=== PATIENT | male | born 1985 | race Caucasian/White ===

== ENCOUNTER 2016-11-21 13:13 | Emergency (ER) | payer MEDICAID ==
[2016-11-21 14:06] LABS: MEAN CORPUSCULAR HEMOGLOBIN 29.9 pg (27.0-33.0); MEAN CORPUSCULAR HGB CONC 34.9 g/dl (32.0-36.5); MEAN CORPUSCULAR VOLUME 85.7 fl (80.0-96.0); RED CELL DISTRIBUTION WIDTH 12.1 % (11.5-14.5); WHITE BLOOD COUNT 6.4 K/mm3 (4.0-10.0)
[2016-11-21 14:38] LABS: AMPHETAMINES LEVEL URINE POSITIVE (NEGATIVE); BENZODIAZEPINES URINE NEGATIVE (NEGATIVE); COCAINE METABOLITE URINE NEGATIVE (NEGATIVE); CONTROL LINE INT CTR LINE PRESENT; METHADONE URINE NEGATIVE (NEGATIVE); OPIATES URINE NEGATIVE (NEGATIVE); TRICYCLIC ANTIDEPRESS URINE NEGATIVE (NEGATIVE)
[2016-11-21 14:45] LABS: ALBUMIN 4.5 GM/DL (3.2-5.2); ALBUMIN/GLOBULIN RATIO 1.67 (1.00-1.93); ALKALINE PHOSPHATASE 65 U/L (45-117); ALT/SGPT 24 U/L (12-78); ANION GAP 6 MEQ/L (8-16); AST/SGOT 25 U/L (15-37); BILIRUBIN,DIRECT 0.2 MG/DL (0.0-0.2); BILIRUBIN,TOTAL 0.7 MG/DL (0.2-1.0); BLOOD UREA NITROGEN 8 MG/DL (7-18); CALCIUM LEVEL 9.8 MG/DL (8.5-10.1); CARBON DIOXIDE LEVEL 29 MEQ/L (21-32); CHLORIDE LEVEL 108 MEQ/L (98-107); CREATININE FOR GFR 0.87 MG/DL (0.70-1.30); GLOMERULAR FILTRATION RATE > 60.0 (>60); GLUCOSE, FASTING 110 MG/DL (70-105); POTASSIUM SERUM 3.7 MEQ/L (3.5-5.1); SODIUM LEVEL 143 MEQ/L (136-145); TOTAL PROTEIN 7.2 GM/DL (6.4-8.2)
--- NOTE | 2016-11-21 16:12 | EDDOCDS ---
Physician Documentation [facility] Name: Warren Palma Age: 31 yrs Sex: Male : 1985 Arrival Date: 11/21/2016 Time: 13:13 Bed 30 Private MD: Disposition: 11/21 15:44 Critical Care: Critical care not applicable. pc Disposition: 11/21/16 15:46 Discharged to Home/Self Care. Impression: Other stimulant abuse - methamphetamine. - Condition is Stable. - Discharge Instructions: Polysubstance Abuse. - Medication Reconciliation, Local Pharmacy Hours form. - Follow up: Referral list, As provided by PFS; When: Call to arrange an appointment; Reason: To establish care. Follow up: CREDO; When: Call to arrange an appointment; Reason: To establish care. - Problem is chronic. - Symptoms are unchanged. HPI: 14:08 This 31 yrs old Male presents to ER via Walkin/Carried/Asstd with complaints pc of Psych Problem. 14:08 The history is obtained from the patient, the patient's family/friend. He is a pc polysubstance abuser, currently on a one week binge of meth, as well as use of Krokodil and Vicodin. His family has brought him here for detox, which he has been told we do not have. He denies SI or HI, and is wanting to leave but his family are convincing to stay. He is agitated but alert and oriented. The patient has experienced similar episodes in the past, several times. The patient has not recently seen a physician. Historical: - Allergies: PENICILLINS (Unknown); - Home Meds: 1. none - PMHx: polysubstance abuse; abnormal EKG; - PSHx: none; - The history from nurses notes was reviewed: and I agree with what is documented. - Social history: Smoking status: Patient uses tobacco products, heavy tobacco smoker. No barriers to communication noted, The patient speaks fluent Danish, Speaks appropriately for age. - : The pt / caregiver states he / she is not on anticoagulants. Home medication list is obtained from the patient. - Hospitalizations: : No recent hospitalization is reported. - Exposure Risk Screening:: None identified. - Immunization history:: All immunizations up-to-date. - Family history: Not pertinent. - Social history:: the patient smokes cigarettes the patient drinks alcohol, the patient uses illicit drugs, including marijuana, opiates. ROS: 14:08 All systems are negative except as listed. The psychiatric and neurological components pc are also addressed in the HPI. Exam: 14:08 General Appearance: alert, anxious. pc 14:08 ENT: ear, nose and throat normal, pharynx normal. 14:08 Eyes: pupils equal, round and reactive to light, extraocular motions intact. 14:08 Neck: The exam reveals no acute abnormalities. ROM is normal and painless. No nuchal rigidity is noted.. 14:08 Respiratory: breathing is even and unlabored, breath sounds are normal. 14:08 Cardiovascular: regular pulse rate, regular heart rhythm, normal heart sounds, equal and full pulses bilaterally. 14:08 Abdomen: soft, non-tender, no organomegaly, normal bowel sounds. 14:08 Skin: skin color is normal, warm, dry. 14:08 Extremities: The extremities have a grossly normal appearance, are non-tender, without acute ROM abnormalities, track rachel noted in arms. 14:08 Neuro: alert, oriented to person, place and time, cranial nerves normal as tested, no motor deficits, no sensory deficits. 14:08 Psych: mood is angry, affect is animated. Vital Signs: 13:16 BP 147 / 66 LA Sitting (auto/reg); Pulse 75; Resp 20; Temp 96.9(O); Pulse Ox 95% on bnb R/A; Weight 61.23 kg / 134.99 lbs (R); Height 5 ft. 10 in. (177.80 cm) (R); 13:16 Body Mass Index 19.37 (61.23 kg, 177.80 cm) bnb MDM: 13:37 Consult PFS/PSA/Communications Systems Engineer ordered. pc 13:37 Confirm accurate psychiatric medication list and times of last dosage ordered. pc 13:38 Acetaminophen Level Ordered. EDMS 13:38 Basic Metabolic Profile Ordered. EDMS 13:38 Complete Blood Count Ordered. EDMS 13:38 Drug Eval Toxicology ED Only Ordered. EDMS 13:38 Ethyl Alcohol (ethanol) Ordered. EDMS 13:38 Liver Profile Ordered. EDMS 13:38 Salicylate Level Ordered. EDMS 13:38 Thyroid Stimulating Hormone Ordered. EDMS 14:08 Differential diagnosis: Substance Abuse. Plan: PFS eval. pc 14:50 Acetaminophen Level Reviewed. pc 14:50 Basic Metabolic Profile Reviewed. pc 14:50 Complete Blood Count Reviewed. pc 14:50 Drug Eval Toxicology ED Only Reviewed. pc 14:50 Salicylate Level Reviewed. pc 14:50 Ethyl Alcohol (ethanol) Reviewed. pc 14:50 Liver Profile Reviewed. pc 14:50 Thyroid Stimulating Hormone Reviewed. pc 15:13 Consult PFS/PSA/Communications Systems Engineer complete. ml4 15:44 The patient has been medically cleared for psychiatric evaluation, admission and/or pc transfer. [employer] Safe Act reporting: Reporting to the [employer] Safe Act was not completed because the patient did not display any suicidal or homicidal ideation and was not considered a risk to self or others. Data reviewed: old medical records, vital signs, nurses notes, lab test results. Test interpretation: LAB - all labs as ordered have been reviewed, interpreted and considered in the overall management of the clinical presentation;. The patient has been re-examined and re-evaluated. There is no appreciated change of the patient's symptoms at this time. Disposition: The historical points, examination findings, and any diagnostic results supporting the provided diagnosis, were discussed with the patient or legal guardian. The need for outpatient follow up with the provider listed on their discharge instructions was discussed. They were encouraged to return to [facility], or the nearest ED, if symptoms worsen/persist, or for any other questions/concerns. 16:08 E Legal paperwork was scanned into [employer] and attached to record. ml4 Signatures: Dispatcher [employer] EDMS Gume Sharp MD MD pc Sleeman, Kacey, RN RN kcs Helmerci, Jennifer, RN RN jo3 Treadwell, Michelle PSA PSA ml4 MTDD
--- NOTE | 2016-11-21 16:12 | EDDOCDS ---
Nurse's Notes [facility] Name: Warren Palma Age: 31 yrs Sex: Male : 1985 Arrival Date: 11/21/2016 Time: 13:13 Bed 30 Private MD: Diagnosis: Other stimulant abuse-methamphetamine Presentation: 11/21 13:30 Presenting complaint: Pt has long history of polysubstance abuse to include meth , jo3 crocodile, and opioids. Here today because he wants mandatory detox. States that he is in withdrawal after consuming 1gram of meth at 0000. Used Vicodin, crocodile and concerta in the past week. Mental Health Triage Level: Level 1- Pt displays no suicidal or homicidal ideations and does not appear to be a danger to self or others. Adult Sepsis Screening: The patient does not have new or worsening altered mentation. Patient's respiratory rate is less than 22. Systolic blood pressure is greater than 100. Patient has a qSOFA score of 0- Negative Sepsis Screen. Suicide/Homicide risk assessment- the patient denies having any suicidal and/or homicidal ideations and does not present with any other emotional, behavioral or mental health complaints. Status: Patient is not a hr shared services consultant or dependent. Transition of care: patient was not received from another setting of care. 13:30 Acuity: OUSMANE Level 4 jo3 13:30 Method Of Arrival: Walkin/Carried/Asstd jo3 Triage Assessment: 13:35 General: Appears slender, uncomfortable, unkempt. HIV screening NA for this visit jo3 Offered previously. Neurological: Level of Consciousness is awake, alert, Oriented to person, place, time. Respiratory: Airway is patent Respiratory effort is even, unlabored. Derm: Skin is pink, warm & dry. Historical: - Allergies: PENICILLINS (Unknown); - Home Meds: 1. none - PMHx: polysubstance abuse; abnormal EKG; - PSHx: none; - The history from nurses notes was reviewed: and I agree with what is documented. - Social history: Smoking status: Patient uses tobacco products, heavy tobacco smoker. No barriers to communication noted, The patient speaks fluent Maltese, Speaks appropriately for age. - : The pt / caregiver states he / she is not on anticoagulants. Home medication list is obtained from the patient. - Hospitalizations: : No recent hospitalization is reported. - Exposure Risk Screening:: None identified. - Immunization history:: All immunizations up-to-date. - Family history: Not pertinent. - Social history:: the patient smokes cigarettes the patient drinks alcohol, the patient uses illicit drugs, including marijuana, opiates. Screenin:50 Screening information is obtained from the patient. Fall risk: No risks identified. kcs Assistance ADL's: requires no assistance with activities of daily living. Abuse/DV Screen: The patient / caregiver reports he/she is: not in a situation that causes fear, pain or injury. Nutritional screening: does not eat for days per family. Advance Directives: Currently, there is no health care proxy. home support is adequate. Assessment: 13:57 Reassessment: Patient handed me his urine specimen and asked when he was going to be kcs going upstairs to be admitted - informed that it would be awhile since we are just sending his labs upstairs now. Patient told his family he wanted to leave and they told him he had to stay and get help. Patient is swearing constantly. Boxed lunch given because the patient stated he had not eaten in 5 days. Patient very restless, agitated and at times confrontational. Family at bedside.. 14:22 Reassessment: Patient more cooperative - talking with family.. kcs 15:10 Reassessment: patient and brother started fighting in room - throwing objects and kcs swearing - mother made brother leave. Patient agitated and restless - provider informed.. 15:28 General: patient being evaluated by FAVIO Vasquez. Family has stepped out.. kcs 15:50 Reassessment: patient left when given PSA referral form and did not wait for ED kcs discharge paperwork. Patient left with family after PSA spoke with mother.. Social Work Consult: 15:55 Social Work Note: Met pt at bedside regarding drug abuse. 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 He admits wanting help, but Mother is requesting pt to attend detox or she will not allow him back into their home. Rehab/Detox information was explained in great detail. Pt denies SI and HI, able to CFS. Referrals were given and directed pt to attend walk-in hrs at [facility]. Pt is discharged with Mother and directed to follow up with [facility] for further tx. Vital Signs: 13:16 BP 147 / 66 LA Sitting (auto/reg); Pulse 75; Resp 20; Temp 96.9(O); Pulse Ox 95% on bnb R/A; Weight 61.23 kg (R); Height 5 ft. 10 in. (177.80 cm) (R); 13:16 Body Mass Index 19.37 (61.23 kg, 177.80 cm) bnb Vitals: 13:16 Log In Time: November 21, 2016 at 13:14. bnb ED Course: 13:14 Patient visited by Valentine Fitzgerald PCA. bnb 13:14 Patient moved to Waiting bnb 13:20 Patient moved to Pre RCE bnb 13:23 Patient moved to 30 jo3 13:26 Gume Sharp MD is Attending Physician. pc 13:34 Triage Initiated jo3 13:35 Patient visited by Julia Menjivar RN. jo3 13:49 Patient visited by Gume Sharp MD. pc 13:56 Acetaminophen Level Sent. kcs 13:56 Basic Metabolic Profile Sent. kcs 14:01 Complete Blood Count Sent. kcs 14:01 Drug Eval Toxicology ED Only Sent. kcs 14:01 Ethyl Alcohol (ethanol) Sent. kcs 14:01 Liver Profile Sent. kcs 14:01 Salicylate Level Sent. kcs 14:01 Thyroid Stimulating Hormone Sent. kcs 14:50 Patient visited by Gume Sharp MD. pc 15:13 Patient visited by Emelina Hoffman PSA. ml4 15:46 Referral list, As provided by PFS is Referral Physician. pc 15:47 [facility]O is Referral Physician. pc 15:50 The patient / caregiver is instructed regarding the plan of care and ED course. kcs 15:50 No IV's were initiated during this patient's visit. No procedures done that require kcs assistance. 16:08 E Legal paperwork was scanned into [facility] and attached to record. ml4 Attachments: 16:08 E Legal paperwork ml4 Order Results: Lab Order: Acetaminophen Level; SPEC'M 11/21/16 13:49 Test: ACETAMINOPHEN LEVEL; Value: < 2.0; Range: 10.0-30.0; Abnormal: Below low normal; Units: UG/ML; Status: F Lab Order: Basic Metabolic Profile; SPEC'M 11/21/16 13:49 Test: GLUCOSE, FASTING; Value: 110; Range: 70-105; Abnormal: Above high normal; Units: MG/DL; Status: F Test: BLOOD UREA NITROGEN; Value: 8; Range: 7-18; Units: MG/DL; Status: F Test: CREATININE FOR GFR; Value: 0.87; Range: 0.70-1.30; Units: MG/DL; Status: F Test: GLOMERULAR FILTRATION RATE; Value: > 60.0; Range: >60; Status: F Test: SODIUM LEVEL; Value: 143; Range: 136-145; Units: MEQ/L; Status: F Test: POTASSIUM SERUM; Value: 3.7; Range: 3.5-5.1; Units: MEQ/L; Status: F Test: CHLORIDE LEVEL; Value: 108; Range: 98-107; Abnormal: Above high normal; Units: MEQ/L; Status: F Test: CARBON DIOXIDE LEVEL; Value: 29; Range: 21-32; Units: MEQ/L; Status: F Test: ANION GAP; Value: 6; Range: 8-16; Abnormal: Below low normal; Units: MEQ/L; Status: F Test: CALCIUM LEVEL; Value: 9.8; Range: 8.5-10.1; Units: MG/DL; Status: F Test Note: ; Units are mL/min/1.73 m2 Chronic Kidney Disease Staging per NKF: Stage I & II GFR >=60 Normal to Mildly Decreased Stage III GFR 30-59 Moderately Decreased Stage IV GFR 15-29 Severely Decreased Stage V GFR <15 Very Little GFR Left ESRD GFR <15 on SPOOLING OPERATOR Lab Order: Complete Blood Count; SPEC'M 11/21/16 13:49 Test: WHITE BLOOD COUNT; Value: 6.4; Range: 4.0-10.0; Units: K/mm3; Status: F Test: RED BLOOD COUNT; Value: 4.48; Range: 4.30-6.10; Units: M/mm3; Status: F Test: HEMOGLOBIN; Value: 13.4; Range: 14.0-18.0; Abnormal: Below low normal; Units: g/dl; Status: F Test: HEMATOCRIT; Value: 38.4; Range: 42.0-52.0; Abnormal: Below low normal; Units: %; Status: F Test: MEAN CORPUSCULAR VOLUME; Value: 85.7; Range: 80.0-96.0; Units: fl; Status: F Test: MEAN CORPUSCULAR HEMOGLOBIN; Value: 29.9; Range: 27.0-33.0; Units: pg; Status: F Test: MEAN CORPUSCULAR HGB CONC; Value: 34.9; Range: 32.0-36.5; Units: g/dl; Status: F Test: RED CELL DISTRIBUTION WIDTH; Value: 12.1; Range: 11.5-14.5; Units: %; Status: F Test: PLATELET COUNT, AUTOMATED; Value: 290; Range: 150-450; Units: k/mm3; Status: F Lab Order: Drug Eval Toxicology ED Only; SPEC'M 11/21/16 13:49 Test: AMPHETAMINES LEVEL URINE; Value: POSITIVE; Range: NEGATIVE; Abnormal: Above high normal; Status: F Test: BARBITURATES URINE; Value: NEGATIVE; Range: NEGATIVE; Status: F Test: BENZODIAZEPINES URINE; Value: NEGATIVE; Range: NEGATIVE; Status: F Test: CANNABINOIDS URINE; Value: POSITIVE; Range: NEGATIVE; Abnormal: Above high normal; Status: F Test: COCAINE METABOLITE URINE; Value: NEGATIVE; Range: NEGATIVE; Status: F Test: METHADONE URINE; Value: NEGATIVE; Range: NEGATIVE; Status: F Test: OPIATES URINE; Value: NEGATIVE; Range: NEGATIVE; Status: F Test: TRICYCLIC ANTIDEPRESS URINE; Value: NEGATIVE; Range: NEGATIVE; Status: F Test Note: ; FALSE POSITIVE RESULTS CAN BE CAUSED BY THE USE OF PANTOPRAZOLE (PROTONIX). Lab Order: Ethyl Alcohol (ethanol); SPEC'M 11/21/16 13:49 Test: ETHYL ALCOHOL (ETHANOL); Value: < 0.003; Range: 0.000-0.010; Units: %; Status: F Lab Order: Liver Profile; SPEC'M 11/21/16 13:49 Test: AST/SGOT; Value: 25; Range: 15-37; Units: U/L; Status: F Test: ALT/SGPT; Value: 24; Range: 12-78; Units: U/L; Status: F Test: ALKALINE PHOSPHATASE; Value: 65; Range: 45-117; Units: U/L; Status: F Test: BILIRUBIN,TOTAL; Value: 0.7; Range: 0.2-1.0; Units: MG/DL; Status: F Test: BILIRUBIN,DIRECT; Value: 0.2; Range: 0.0-0.2; Units: MG/DL; Status: F Test: TOTAL PROTEIN; Value: 7.2; Range: 6.4-8.2; Units: GM/DL; Status: F Test: ALBUMIN; Value: 4.5; Range: 3.2-5.2; Units: GM/DL; Status: F Test: ALBUMIN/GLOBULIN RATIO; Value: 1.67; Range: 1.00-1.93; Status: F Lab Order: Salicylate Level; SPEC'M 11/21/16 13:49 Test: SALICYLATE LEVEL; Value: 3.2; Range: 5.0-30.0; Abnormal: Below low normal; Units: MG/DL; Status: F Lab Order: Thyroid Stimulating Hormone; SPEC'M 11/21/16 13:49 Test: THYROID STIMULATING HORMONE; Value: 1.950; Range: 0.358-3.740; Units: uIU/ML; Status: F Outcome: 15:46 Discharge ordered by Provider. pc 15:50 Discharge Assessment: Patient awake, alert and oriented x 3. No cognitive and/or kcs functional deficits noted. Patient verbalized understanding of disposition instructions. Patient awake and alert. patient administered narcotics - no. The following High Risk Discharge criteria are identified: Yes, patient was evaluated by PSA. Discharged to home ambulatory, with family. Condition: stable. No special radiology studies were completed. Property sent home with patient. 16:11 Patient left the ED. kcs Signatures: Gume Sharp MD MD pc Sleeman, Kacey, RN RN Julia GardnerRN RN Emelina Maldonado, PSA PSA ml4 Valentine Fitzgerald PCA ACCOUNTS RECEIVABLE ACCOUNTANT bnb Corrections: (The following items were deleted from the chart) 13:19 13:16 Temp 96.9F Oral; 61.23 kg Reported; Height 5 ft. 10 in. Reported; BMI: 19.3; bnb bnb 16:08 16:07 The patient / caregiver is instructed regarding the plan of care and ED course. [facility] 16: 16:07 Screening information is obtained from the patient, [facility] 16: 16:07 Fall risk: No risks identified. kcs [facility] 16: 16:07 Assistance ADL's: requires no assistance with activities of daily living. kcs [facility] 16: 16: Abuse/DV Screen: The patient / caregiver reports he/she is: not in a situation kcs that causes fear, pain or injury. [facility] 16: 16:07 Nutritional screening: does not eat for days per family. [facility] 16: 16:07 Advance Directives: Currently, there is no health care proxy. kcs [facility] 16: 16:07 home support is adequate. [facility] MTDD
--- NOTE | 2016-11-23 17:11 | EDDOCDS ---
Physician Documentation [facility] Name: Warren Palma Age: 31 yrs Sex: Male : 1985 Arrival Date: 11/21/2016 Time: 13:13 Bed 30 Private MD: Disposition: 11/21 15:44 Critical Care: Critical care not applicable. pc Disposition: 11/21/16 15:46 Discharged to Home/Self Care. Impression: Other stimulant abuse - methamphetamine. - Condition is Stable. - Discharge Instructions: Polysubstance Abuse. - Medication Reconciliation, Local Pharmacy Hours form. - Follow up: Referral list, As provided by PFS; When: Call to arrange an appointment; Reason: To establish care. Follow up: [facility]; When: Call to arrange an appointment; Reason: To establish care. - Problem is chronic. - Symptoms are unchanged. HPI: 14:08 This 31 yrs old Male presents to ER via Walkin/Carried/Asstd with complaints pc of Psych Problem. 14:08 The history is obtained from the patient, the patient's family/friend. He is a pc polysubstance abuser, currently on a one week binge of meth, as well as use of Krokodil and Vicodin. His family has brought him here for detox, which he has been told we do not have. He denies SI or HI, and is wanting to leave but his family are convincing to stay. He is agitated but alert and oriented. The patient has experienced similar episodes in the past, several times. The patient has not recently seen a physician. Historical: - Allergies: PENICILLINS (Unknown); - Home Meds: 1. none - PMHx: polysubstance abuse; abnormal EKG; - PSHx: none; - The history from nurses notes was reviewed: and I agree with what is documented. - Social history: Smoking status: Patient uses tobacco products, heavy tobacco smoker. No barriers to communication noted, The patient speaks fluent Australian, Speaks appropriately for age. - : The pt / caregiver states he / she is not on anticoagulants. Home medication list is obtained from the patient. - Hospitalizations: : No recent hospitalization is reported. - Exposure Risk Screening:: None identified. - Immunization history:: All immunizations up-to-date. - Family history: Not pertinent. - Social history:: the patient smokes cigarettes the patient drinks alcohol, the patient uses illicit drugs, including marijuana, opiates. ROS: 14:08 All systems are negative except as listed. The psychiatric and neurological components pc are also addressed in the HPI. Exam: 14:08 General Appearance: alert, anxious. pc 14:08 ENT: ear, nose and throat normal, pharynx normal. 14:08 Eyes: pupils equal, round and reactive to light, extraocular motions intact. 14:08 Neck: The exam reveals no acute abnormalities. ROM is normal and painless. No nuchal rigidity is noted.. 14:08 Respiratory: breathing is even and unlabored, breath sounds are normal. 14:08 Cardiovascular: regular pulse rate, regular heart rhythm, normal heart sounds, equal and full pulses bilaterally. 14:08 Abdomen: soft, non-tender, no organomegaly, normal bowel sounds. 14:08 Skin: skin color is normal, warm, dry. 14:08 Extremities: The extremities have a grossly normal appearance, are non-tender, without acute ROM abnormalities, track rachel noted in arms. 14:08 Neuro: alert, oriented to person, place and time, cranial nerves normal as tested, no motor deficits, no sensory deficits. 14:08 Psych: mood is angry, affect is animated. Vital Signs: 13:16 BP 147 / 66 LA Sitting (auto/reg); Pulse 75; Resp 20; Temp 96.9(O); Pulse Ox 95% on bnb R/A; Weight 61.23 kg / 134.99 lbs (R); Height 5 ft. 10 in. (177.80 cm) (R); 13:16 Body Mass Index 19.37 (61.23 kg, 177.80 cm) bnb MDM: 13:37 Consult PFS/PSA/Marketing Rep ordered. pc 13:37 Confirm accurate psychiatric medication list and times of last dosage ordered. pc 13:38 Acetaminophen Level Ordered. EDMS 13:38 Basic Metabolic Profile Ordered. EDMS 13:38 Complete Blood Count Ordered. EDMS 13:38 Drug Eval Toxicology ED Only Ordered. EDMS 13:38 Ethyl Alcohol (ethanol) Ordered. EDMS 13:38 Liver Profile Ordered. EDMS 13:38 Salicylate Level Ordered. EDMS 13:38 Thyroid Stimulating Hormone Ordered. EDMS 14:08 Differential diagnosis: Substance Abuse. Plan: PFS eval. pc 14:50 Acetaminophen Level Reviewed. pc 14:50 Basic Metabolic Profile Reviewed. pc 14:50 Complete Blood Count Reviewed. pc 14:50 Drug Eval Toxicology ED Only Reviewed. pc 14:50 Salicylate Level Reviewed. pc 14:50 Ethyl Alcohol (ethanol) Reviewed. pc 14:50 Liver Profile Reviewed. pc 14:50 Thyroid Stimulating Hormone Reviewed. pc 15:13 Consult PFS/PSA/Marketing Rep complete. ml4 15:44 The patient has been medically cleared for psychiatric evaluation, admission and/or pc transfer. [place] Safe Act reporting: Reporting to the [employer] Safe Act was not completed because the patient did not display any suicidal or homicidal ideation and was not considered a risk to self or others. Data reviewed: old medical records, vital signs, nurses notes, lab test results. Test interpretation: LAB - all labs as ordered have been reviewed, interpreted and considered in the overall management of the clinical presentation;. The patient has been re-examined and re-evaluated. There is no appreciated change of the patient's symptoms at this time. Disposition: The historical points, examination findings, and any diagnostic results supporting the provided diagnosis, were discussed with the patient or legal guardian. The need for outpatient follow up with the provider listed on their discharge instructions was discussed. They were encouraged to return to [facility], or the nearest ED, if symptoms worsen/persist, or for any other questions/concerns. 16:08 [facility] Legal paperwork was scanned into [employer] and attached to record. ml4 16:23 Financial registration complete. [email or web address] 16:25 [facility] Payment Agreement was scanned into [employer] and attached to record. [email or web address] Signatures: Dispatcher [employer] EDMS Gume Sharp MD MD pc Sleeman, Kacey, RN RN kcs Helmerci, Jennifer, RN RN joEmelina Cruz, PSA PSA ml4 Marina Orosco, Reg Reg [email or web address] The chart was reviewed and I authenticate all verbal orders and agree with the evaluation and treatment provided.Attachments: 16:25 [facility] Payment Agreement [email or web address] Chart Complete MTDD
--- NOTE | 2016-11-23 17:11 | EDDOCDS ---
Physician Documentation [facility] Name: Warren Palma Age: 31 yrs Sex: Male : 1985 Arrival Date: 11/21/2016 Time: 13:13 Bed 30 Private MD: Disposition: 11/21 15:44 Critical Care: Critical care not applicable. pc Disposition: 11/21/16 15:46 Discharged to Home/Self Care. Impression: Other stimulant abuse - methamphetamine. - Condition is Stable. - Discharge Instructions: Polysubstance Abuse. - Medication Reconciliation, Local Pharmacy Hours form. - Follow up: Referral list, As provided by PFS; When: Call to arrange an appointment; Reason: To establish care. Follow up: [facility]; When: Call to arrange an appointment; Reason: To establish care. - Problem is chronic. - Symptoms are unchanged. HPI: 14:08 This 31 yrs old Male presents to ER via Walkin/Carried/Asstd with complaints pc of Psych Problem. 14:08 The history is obtained from the patient, the patient's family/friend. He is a pc polysubstance abuser, currently on a one week binge of meth, as well as use of Krokodil and Vicodin. His family has brought him here for detox, which he has been told we do not have. He denies SI or HI, and is wanting to leave but his family are convincing to stay. He is agitated but alert and oriented. The patient has experienced similar episodes in the past, several times. The patient has not recently seen a physician. Historical: - Allergies: PENICILLINS (Unknown); - Home Meds: 1. none - PMHx: polysubstance abuse; abnormal EKG; - PSHx: none; - The history from nurses notes was reviewed: and I agree with what is documented. - Social history: Smoking status: Patient uses tobacco products, heavy tobacco smoker. No barriers to communication noted, The patient speaks fluent Taiwanese, Speaks appropriately for age. - : The pt / caregiver states he / she is not on anticoagulants. Home medication list is obtained from the patient. - Hospitalizations: : No recent hospitalization is reported. - Exposure Risk Screening:: None identified. - Immunization history:: All immunizations up-to-date. - Family history: Not pertinent. - Social history:: the patient smokes cigarettes the patient drinks alcohol, the patient uses illicit drugs, including marijuana, opiates. ROS: 14:08 All systems are negative except as listed. The psychiatric and neurological components pc are also addressed in the HPI. Exam: 14:08 General Appearance: alert, anxious. pc 14:08 ENT: ear, nose and throat normal, pharynx normal. 14:08 Eyes: pupils equal, round and reactive to light, extraocular motions intact. 14:08 Neck: The exam reveals no acute abnormalities. ROM is normal and painless. No nuchal rigidity is noted.. 14:08 Respiratory: breathing is even and unlabored, breath sounds are normal. 14:08 Cardiovascular: regular pulse rate, regular heart rhythm, normal heart sounds, equal and full pulses bilaterally. 14:08 Abdomen: soft, non-tender, no organomegaly, normal bowel sounds. 14:08 Skin: skin color is normal, warm, dry. 14:08 Extremities: The extremities have a grossly normal appearance, are non-tender, without acute ROM abnormalities, track rachel noted in arms. 14:08 Neuro: alert, oriented to person, place and time, cranial nerves normal as tested, no motor deficits, no sensory deficits. 14:08 Psych: mood is angry, affect is animated. Vital Signs: 13:16 BP 147 / 66 LA Sitting (auto/reg); Pulse 75; Resp 20; Temp 96.9(O); Pulse Ox 95% on bnb R/A; Weight 61.23 kg / 134.99 lbs (R); Height 5 ft. 10 in. (177.80 cm) (R); 13:16 Body Mass Index 19.37 (61.23 kg, 177.80 cm) bnb MDM: 13:37 Consult PFS/PSA/Business Analysis Specialist ordered. pc 13:37 Confirm accurate psychiatric medication list and times of last dosage ordered. pc 13:38 Acetaminophen Level Ordered. EDMS 13:38 Basic Metabolic Profile Ordered. EDMS 13:38 Complete Blood Count Ordered. EDMS 13:38 Drug Eval Toxicology ED Only Ordered. EDMS 13:38 Ethyl Alcohol (ethanol) Ordered. EDMS 13:38 Liver Profile Ordered. EDMS 13:38 Salicylate Level Ordered. EDMS 13:38 Thyroid Stimulating Hormone Ordered. EDMS 14:08 Differential diagnosis: Substance Abuse. Plan: PFS eval. pc 14:50 Acetaminophen Level Reviewed. pc 14:50 Basic Metabolic Profile Reviewed. pc 14:50 Complete Blood Count Reviewed. pc 14:50 Drug Eval Toxicology ED Only Reviewed. pc 14:50 Salicylate Level Reviewed. pc 14:50 Ethyl Alcohol (ethanol) Reviewed. pc 14:50 Liver Profile Reviewed. pc 14:50 Thyroid Stimulating Hormone Reviewed. pc 15:13 Consult PFS/PSA/Business Analysis Specialist complete. ml4 15:44 The patient has been medically cleared for psychiatric evaluation, admission and/or pc transfer. [place] Safe Act reporting: Reporting to the [employer] Safe Act was not completed because the patient did not display any suicidal or homicidal ideation and was not considered a risk to self or others. Data reviewed: old medical records, vital signs, nurses notes, lab test results. Test interpretation: LAB - all labs as ordered have been reviewed, interpreted and considered in the overall management of the clinical presentation;. The patient has been re-examined and re-evaluated. There is no appreciated change of the patient's symptoms at this time. Disposition: The historical points, examination findings, and any diagnostic results supporting the provided diagnosis, were discussed with the patient or legal guardian. The need for outpatient follow up with the provider listed on their discharge instructions was discussed. They were encouraged to return to [facility], or the nearest ED, if symptoms worsen/persist, or for any other questions/concerns. 16:08 [facility] Legal paperwork was scanned into [employer] and attached to record. ml4 16:23 Financial registration complete. [email or web address] 16:25 [facility] Payment Agreement was scanned into [employer] and attached to record. [email or web address] Signatures: Dispatcher [employer] EDMS Gume Sharp MD MD pc Sleeman, Kacey, RN RN kcs Helmerci, Jennifer, RN RN joEmelina Cruz, PSA PSA ml4 Marina Orosco, Reg Reg ks16 The chart was reviewed and I authenticate all verbal orders and agree with the evaluation and treatment provided.Attachments: 16:25 [facility] Payment Agreement [email or web address] Chart Complete MTDD
--- NOTE | 2016-11-23 17:11 | EDDOCDS ---
Nurse's Notes [facility] Name: Warren Palma Age: 31 yrs Sex: Male : 1985 Arrival Date: 11/21/2016 Time: 13:13 Bed 30 Private MD: Diagnosis: Other stimulant abuse-methamphetamine Presentation: 11/21 13:30 Presenting complaint: Pt has long history of polysubstance abuse to include meth , jo3 crocodile, and opioids. Here today because he wants mandatory detox. States that he is in withdrawal after consuming 1gram of meth at 0000. Used Vicodin, crocodile and concerta in the past week. Mental Health Triage Level: Level 1- Pt displays no suicidal or homicidal ideations and does not appear to be a danger to self or others. Adult Sepsis Screening: The patient does not have new or worsening altered mentation. Patient's respiratory rate is less than 22. Systolic blood pressure is greater than 100. Patient has a qSOFA score of 0- Negative Sepsis Screen. Suicide/Homicide risk assessment- the patient denies having any suicidal and/or homicidal ideations and does not present with any other emotional, behavioral or mental health complaints. Status: Patient is not a customer service officer or dependent. Transition of care: patient was not received from another setting of care. 13:30 Acuity: OUSMANE Level 4 jo3 13:30 Method Of Arrival: Walkin/Carried/Asstd jo3 Triage Assessment: 13:35 General: Appears slender, uncomfortable, unkempt. HIV screening NA for this visit jo3 Offered previously. Neurological: Level of Consciousness is awake, alert, Oriented to person, place, time. Respiratory: Airway is patent Respiratory effort is even, unlabored. Derm: Skin is pink, warm & dry. Historical: - Allergies: PENICILLINS (Unknown); - Home Meds: 1. none - PMHx: polysubstance abuse; abnormal EKG; - PSHx: none; - The history from nurses notes was reviewed: and I agree with what is documented. - Social history: Smoking status: Patient uses tobacco products, heavy tobacco smoker. No barriers to communication noted, The patient speaks fluent Romansh, Speaks appropriately for age. - : The pt / caregiver states he / she is not on anticoagulants. Home medication list is obtained from the patient. - Hospitalizations: : No recent hospitalization is reported. - Exposure Risk Screening:: None identified. - Immunization history:: All immunizations up-to-date. - Family history: Not pertinent. - Social history:: the patient smokes cigarettes the patient drinks alcohol, the patient uses illicit drugs, including marijuana, opiates. Screenin:50 Screening information is obtained from the patient. Fall risk: No risks identified. kcs Assistance ADL's: requires no assistance with activities of daily living. Abuse/DV Screen: The patient / caregiver reports he/she is: not in a situation that causes fear, pain or injury. Nutritional screening: does not eat for days per family. Advance Directives: Currently, there is no health care proxy. home support is adequate. Assessment: 13:57 Reassessment: Patient handed me his urine specimen and asked when he was going to be kcs going upstairs to be admitted - informed that it would be awhile since we are just sending his labs upstairs now. Patient told his family he wanted to leave and they told him he had to stay and get help. Patient is swearing constantly. Boxed lunch given because the patient stated he had not eaten in 5 days. Patient very restless, agitated and at times confrontational. Family at bedside.. 14:22 Reassessment: Patient more cooperative - talking with family.. kcs 15:10 Reassessment: patient and brother started fighting in room - throwing objects and kcs swearing - mother made brother leave. Patient agitated and restless - provider informed.. 15:28 General: patient being evaluated by FAVIO Vasquez. Family has stepped out.. kcs 15:50 Reassessment: patient left when given PSA referral form and did not wait for ED kcs discharge paperwork. Patient left with family after PSA spoke with mother.. Social Work Consult: 15:55 Social Work Note: Met pt at bedside regarding drug abuse. 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 He admits wanting help, but Mother is requesting pt to attend detox or she will not allow him back into their home. Rehab/Detox information was explained in great detail. Pt denies SI and HI, able to CFS. Referrals were given and directed pt to attend walk-in hrs at [facility]. Pt is discharged with Mother and directed to follow up with [facility] for further tx. Vital Signs: 13:16 BP 147 / 66 LA Sitting (auto/reg); Pulse 75; Resp 20; Temp 96.9(O); Pulse Ox 95% on bnb R/A; Weight 61.23 kg (R); Height 5 ft. 10 in. (177.80 cm) (R); 13:16 Body Mass Index 19.37 (61.23 kg, 177.80 cm) bnb Vitals: 13:16 Log In Time: November 21, 2016 at 13:14. bnb ED Course: 13:14 Patient visited by Valentine Fitzgerald PCA. bnb 13:14 Patient moved to Waiting bnb 13:20 Patient moved to Pre RCE bnb 13:23 Patient moved to 30 jo3 13:26 Gume Sharp MD is Attending Physician. pc 13:34 Triage Initiated jo3 13:35 Patient visited by Julia Menjivar RN. jo3 13:49 Patient visited by Gume Sharp MD. pc 13:56 Acetaminophen Level Sent. kcs 13:56 Basic Metabolic Profile Sent. kcs 14:01 Complete Blood Count Sent. kcs 14:01 Drug Eval Toxicology ED Only Sent. kcs 14:01 Ethyl Alcohol (ethanol) Sent. kcs 14:01 Liver Profile Sent. kcs 14:01 Salicylate Level Sent. kcs 14:01 Thyroid Stimulating Hormone Sent. kcs 14:50 Patient visited by Gume Sharp MD. pc 15:13 Patient visited by Emelina Hoffman PSA. ml4 15:46 Referral list, As provided by PFS is Referral Physician. pc 15:47 [facility] is Referral Physician. pc 15:50 The patient / caregiver is instructed regarding the plan of care and ED course. kcs 15:50 No IV's were initiated during this patient's visit. No procedures done that require kcs assistance. 16:08 [facility] Legal paperwork was scanned into [employer] and attached to record. ml4 16:25 [facility] Payment Agreement was scanned into [employer] and attached to record. [email or web address] Attachments: 16:08 [facility] Legal paperwork ml4 Order Results: Lab Order: Acetaminophen Level; SPEC'M 11/21/16 13:49 Test: ACETAMINOPHEN LEVEL; Value: < 2.0; Range: 10.0-30.0; Abnormal: Below low normal; Units: UG/ML; Status: F Lab Order: Basic Metabolic Profile; SPEC11/21/16 13:49 Test: GLUCOSE, FASTING; Value: 110; Range: 70-105; Abnormal: Above high normal; Units: MG/DL; Status: F Test: BLOOD UREA NITROGEN; Value: 8; Range: 7-18; Units: MG/DL; Status: F Test: CREATININE FOR GFR; Value: 0.87; Range: 0.70-1.30; Units: MG/DL; Status: F Test: GLOMERULAR FILTRATION RATE; Value: > 60.0; Range: >60; Status: F Test: SODIUM LEVEL; Value: 143; Range: 136-145; Units: MEQ/L; Status: F Test: POTASSIUM SERUM; Value: 3.7; Range: 3.5-5.1; Units: MEQ/L; Status: F Test: CHLORIDE LEVEL; Value: 108; Range: 98-107; Abnormal: Above high normal; Units: MEQ/L; Status: F Test: CARBON DIOXIDE LEVEL; Value: 29; Range: 21-32; Units: MEQ/L; Status: F Test: ANION GAP; Value: 6; Range: 8-16; Abnormal: Below low normal; Units: MEQ/L; Status: F Test: CALCIUM LEVEL; Value: 9.8; Range: 8.5-10.1; Units: MG/DL; Status: F Test Note: ; Units are mL/min/1.73 m2 Chronic Kidney Disease Staging per NKF: Stage I & II GFR >=60 Normal to Mildly Decreased Stage III GFR 30-59 Moderately Decreased Stage IV GFR 15-29 Severely Decreased Stage V GFR <15 Very Little GFR Left ESRD GFR <15 on ATTENDANCE SECRETARY Lab Order: Complete Blood Count; SPEC11/21/16 13:49 Test: WHITE BLOOD COUNT; Value: 6.4; Range: 4.0-10.0; Units: K/mm3; Status: F Test: RED BLOOD COUNT; Value: 4.48; Range: 4.30-6.10; Units: M/mm3; Status: F Test: HEMOGLOBIN; Value: 13.4; Range: 14.0-18.0; Abnormal: Below low normal; Units: g/dl; Status: F Test: HEMATOCRIT; Value: 38.4; Range: 42.0-52.0; Abnormal: Below low normal; Units: %; Status: F Test: MEAN CORPUSCULAR VOLUME; Value: 85.7; Range: 80.0-96.0; Units: fl; Status: F Test: MEAN CORPUSCULAR HEMOGLOBIN; Value: 29.9; Range: 27.0-33.0; Units: pg; Status: F Test: MEAN CORPUSCULAR HGB CONC; Value: 34.9; Range: 32.0-36.5; Units: g/dl; Status: F Test: RED CELL DISTRIBUTION WIDTH; Value: 12.1; Range: 11.5-14.5; Units: %; Status: F Test: PLATELET COUNT, AUTOMATED; Value: 290; Range: 150-450; Units: k/mm3; Status: F Lab Order: Drug Eval Toxicology ED Only; SPEC'M 11/21/16 13:49 Test: AMPHETAMINES LEVEL URINE; Value: POSITIVE; Range: NEGATIVE; Abnormal: Above high normal; Status: F Test: BARBITURATES URINE; Value: NEGATIVE; Range: NEGATIVE; Status: F Test: BENZODIAZEPINES URINE; Value: NEGATIVE; Range: NEGATIVE; Status: F Test: CANNABINOIDS URINE; Value: POSITIVE; Range: NEGATIVE; Abnormal: Above high normal; Status: F Test: COCAINE METABOLITE URINE; Value: NEGATIVE; Range: NEGATIVE; Status: F Test: METHADONE URINE; Value: NEGATIVE; Range: NEGATIVE; Status: F Test: OPIATES URINE; Value: NEGATIVE; Range: NEGATIVE; Status: F Test: TRICYCLIC ANTIDEPRESS URINE; Value: NEGATIVE; Range: NEGATIVE; Status: F Test Note: ; FALSE POSITIVE RESULTS CAN BE CAUSED BY THE USE OF PANTOPRAZOLE (PROTONIX). Lab Order: Ethyl Alcohol (ethanol); SPEC'M 11/21/16 13:49 Test: ETHYL ALCOHOL (ETHANOL); Value: < 0.003; Range: 0.000-0.010; Units: %; Status: F Lab Order: Liver Profile; SPEC'M 11/21/16 13:49 Test: AST/SGOT; Value: 25; Range: 15-37; Units: U/L; Status: F Test: ALT/SGPT; Value: 24; Range: 12-78; Units: U/L; Status: F Test: ALKALINE PHOSPHATASE; Value: 65; Range: 45-117; Units: U/L; Status: F Test: BILIRUBIN,TOTAL; Value: 0.7; Range: 0.2-1.0; Units: MG/DL; Status: F Test: BILIRUBIN,DIRECT; Value: 0.2; Range: 0.0-0.2; Units: MG/DL; Status: F Test: TOTAL PROTEIN; Value: 7.2; Range: 6.4-8.2; Units: GM/DL; Status: F Test: ALBUMIN; Value: 4.5; Range: 3.2-5.2; Units: GM/DL; Status: F Test: ALBUMIN/GLOBULIN RATIO; Value: 1.67; Range: 1.00-1.93; Status: F Lab Order: Salicylate Level; SPEC'M 11/21/16 13:49 Test: SALICYLATE LEVEL; Value: 3.2; Range: 5.0-30.0; Abnormal: Below low normal; Units: MG/DL; Status: F Lab Order: Thyroid Stimulating Hormone; SPEC'M 11/21/16 13:49 Test: THYROID STIMULATING HORMONE; Value: 1.950; Range: 0.358-3.740; Units: uIU/ML; Status: F Outcome: 15:46 Discharge ordered by Provider. pc 15:50 Discharge Assessment: Patient awake, alert and oriented x 3. No cognitive and/or kcs functional deficits noted. Patient verbalized understanding of disposition instructions. Patient awake and alert. patient administered narcotics - no. The following High Risk Discharge criteria are identified: Yes, patient was evaluated by PSA. Discharged to home ambulatory, with family. Condition: stable. No special radiology studies were completed. Property sent home with patient. 16:11 Patient left the ED. kcs Signatures: Gume Sharp MD MD pc Sleeman, Kacey RN RN Julia Gardner RN RN jo3 Treadwell, Michelle, PSA PSA ml4 Marina Orosco, Reg Reg ks16 Valentine Fitzgerald, CHIEF DEPUTY CORONER CHIEF DEPUTY CORONER bnb Corrections: (The following items were deleted from the chart) 13:19 13:16 Temp 96.9F Oral; 61.23 kg Reported; Height 5 ft. 10 in. Reported; BMI: 19.3; bnb bnb : 16:07 The patient / caregiver is instructed regarding the plan of care and ED course. kcs [facility] 16: Screening information is obtained from the patient, kcs [facility] 16: Fall risk: No risks identified. kcs [facility] 16: Assistance ADL's: requires no assistance with activities of daily living. kcs [facility] 16: Abuse/DV Screen: The patient / caregiver reports he/she is: not in a situation kcs that causes fear, pain or injury. [facility] 16: Nutritional screening: does not eat for days per family. kcs [facility] 16: Advance Directives: Currently, there is no health care proxy. kcs [facility] 16: home support is adequate. kcs kcs Chart Complete MTDD
== END 2016-11-21 16:11 | disposition home or self-care (01) ==
LOC: M ED 13:13
DX: F15.10 Other stimulant abuse, uncomplicated (principal); R94.31 Abnormal electrocardiogram [ECG] [EKG]; F17.210 Nicotine dependence, cigarettes, uncomplicated; Z88.0 Allergy status to penicillin
CPT/HCPCS: 36415; 80048; 80076; 80306; 84443; 85027; 99282; G0480

== ENCOUNTER → 2016-12-06 | Outpatient (CLI) | payer OTHER | LOC: M OUTALCOH 12:54 | PROVIDERS: ATTEND Psychiatry & Neurology Psychiatry | DX: Z13.9 Encounter for screening, unspecified (principal); F15.20 Other stimulant dependence, uncomplicated ==

== ENCOUNTER 2017-01-02 10:30 | Outpatient (RCR) | payer OTHER | END 2017-01-03 | LOC: M OUTALCOH 10:30 | PROVIDERS: ATTEND Psychiatry & Neurology Psychiatry | DX: F15.20 Other stimulant dependence, uncomplicated (principal); F11.10 Opioid abuse, uncomplicated ==

== ENCOUNTER → 2018-07-23 | Outpatient (CLI) | payer MEDICAID, OTHER | LOC: M OUTALCOH 13:02 | DX: F15.20 Other stimulant dependence, uncomplicated (principal); F11.20 Opioid dependence, uncomplicated ==

== ENCOUNTER 2018-07-31 14:41 | Outpatient (RCR) | payer MEDICAID, OTHER | END 2018-08-05 | LOC: M OUTALCOH 14:41 | DX: F15.20 Other stimulant dependence, uncomplicated (principal); F11.20 Opioid dependence, uncomplicated ==

== ENCOUNTER 2018-09-01 16:00 | Outpatient (RCR) | payer OTHER | END 2018-09-04 | LOC: M OUTALCOH 16:00 | PROVIDERS: ATTEND Psychiatry & Neurology Psychiatry | DX: F15.20 Other stimulant dependence, uncomplicated (principal); F11.20 Opioid dependence, uncomplicated ==

== ENCOUNTER 2018-09-22 16:00 | Outpatient (RCR) | payer MEDICAID, OTHER | END 2018-10-05 | LOC: M OUTALCOH 16:00 | PROVIDERS: ATTEND Psychiatry & Neurology Psychiatry | DX: F15.20 Other stimulant dependence, uncomplicated (principal); F11.20 Opioid dependence, uncomplicated ==

== ENCOUNTER → 2018-11-05 | Outpatient (RCR) | payer OTHER | LOC: M OUTALCOH 10-13 08:42 | PROVIDERS: ATTEND Psychiatry & Neurology Psychiatry | DX: F15.20 Other stimulant dependence, uncomplicated (principal); F11.20 Opioid dependence, uncomplicated ==

== ENCOUNTER → 2018-12-03 | Outpatient (RCR) | payer OTHER | LOC: M OUTALCOH 11-06 15:52 | PROVIDERS: ATTEND Psychiatry & Neurology Psychiatry | DX: F15.20 Other stimulant dependence, uncomplicated (principal); F11.20 Opioid dependence, uncomplicated ==

== ENCOUNTER 2019-01-01 08:45 | Outpatient (RCR) | payer OTHER | END 2019-01-03 | LOC: M OUTALCOH 08:45 | PROVIDERS: ATTEND Psychiatry & Neurology Psychiatry | DX: F15.20 Other stimulant dependence, uncomplicated (principal); F11.20 Opioid dependence, uncomplicated ==

== ENCOUNTER 2019-02-01 14:00 | Outpatient (RCR) | payer OTHER | END 2019-02-02 | LOC: M OUTALCOH 14:00 | PROVIDERS: ATTEND Psychiatry & Neurology Psychiatry | DX: F15.20 Other stimulant dependence, uncomplicated (principal); F11.20 Opioid dependence, uncomplicated; F10.10 Alcohol abuse, uncomplicated ==

== ENCOUNTER → 2019-03-12 | Outpatient (CLI) | payer OTHER | LOC: M OUTALCOH 08:17 | PROVIDERS: ATTEND Psychiatry & Neurology Psychiatry | DX: F15.20 Other stimulant dependence, uncomplicated (principal); F11.20 Opioid dependence, uncomplicated ==

== ENCOUNTER 2019-04-02 08:45 | Outpatient (RCR) | payer OTHER | END 2019-04-04 | LOC: M OUTALCOH 08:45 | PROVIDERS: ATTEND Psychiatry & Neurology Psychiatry | DX: F15.20 Other stimulant dependence, uncomplicated (principal); F11.20 Opioid dependence, uncomplicated; F17.200 Nicotine dependence, unspecified, uncomplicated ==

== ENCOUNTER → 2019-05-05 | Outpatient (RCR) | payer OTHER | LOC: M OUTALCOH 04-05 10:00 | PROVIDERS: ATTEND Psychiatry & Neurology Psychiatry | DX: F11.20 Opioid dependence, uncomplicated (principal); F15.20 Other stimulant dependence, uncomplicated; F17.200 Nicotine dependence, unspecified, uncomplicated ==

== ENCOUNTER 2019-06-04 13:00 | Outpatient (RCR) | payer OTHER | END 2019-06-05 | LOC: M OUTALCOH 13:00 | PROVIDERS: ATTEND Psychiatry & Neurology Psychiatry | DX: F15.20 Other stimulant dependence, uncomplicated (principal); F11.20 Opioid dependence, uncomplicated; F17.200 Nicotine dependence, unspecified, uncomplicated ==

== ENCOUNTER 2019-07-02 13:00 | Outpatient (RCR) | payer OTHER | END 2019-07-05 | LOC: M OUTALCOH 13:00 | PROVIDERS: ATTEND Psychiatry & Neurology Psychiatry | DX: F15.20 Other stimulant dependence, uncomplicated (principal); F11.20 Opioid dependence, uncomplicated; F17.200 Nicotine dependence, unspecified, uncomplicated ==

== ENCOUNTER 2019-07-20 15:58 | Outpatient (RCR) | payer OTHER | END 2019-08-05 | LOC: M OUTALCOH 15:58 | PROVIDERS: ATTEND Psychiatry & Neurology Psychiatry | DX: F15.20 Other stimulant dependence, uncomplicated (principal); F11.20 Opioid dependence, uncomplicated; F17.200 Nicotine dependence, unspecified, uncomplicated ==

== ENCOUNTER → 2019-10-12 | Outpatient (CLI) | payer OTHER | LOC: M OUTALCOH 09:18 | PROVIDERS: ATTEND Psychiatry & Neurology Psychiatry | DX: F11.20 Opioid dependence, uncomplicated (principal); F12.10 Cannabis abuse, uncomplicated ==

== ENCOUNTER → 2019-10-25 | Outpatient (CLI) | payer OTHER | LOC: M LAB 19:33 | PROVIDERS: ATTEND Psychiatry & Neurology Addiction Medicine | DX: F11.90 Opioid use, unspecified, uncomplicated (principal) ==

== ENCOUNTER → 2019-11-05 | Outpatient (RCR) | payer OTHER | LOC: M OUTALCOH 10-25 15:56 | PROVIDERS: ATTEND Psychiatry & Neurology Psychiatry | DX: F15.20 Other stimulant dependence, uncomplicated (principal); F11.20 Opioid dependence, uncomplicated; F17.200 Nicotine dependence, unspecified, uncomplicated ==

== ENCOUNTER 2019-12-01 08:45 | Outpatient (RCR) | payer OTHER | END 2019-12-04 | LOC: M OUTALCOH 08:45 | PROVIDERS: ATTEND Psychiatry & Neurology Addiction Medicine | DX: F15.20 Other stimulant dependence, uncomplicated (principal); F11.20 Opioid dependence, uncomplicated; F17.200 Nicotine dependence, unspecified, uncomplicated ==

== ENCOUNTER → 2019-12-15 | Outpatient (REF) | payer OTHER ==
[2019-12-15 18:49] LABS: INFLUENZA A AMPLIFICATION POSITIVE (NEGATIVE); INFLUENZA B AMPLIFICATION NEGATIVE (NEGATIVE)
== END ==
LOC: M LAB REF 17:49
PROVIDERS: ATTEND Physician Assistant
DX: J11.1 Influenza due to unidentified influenza virus with other respiratory manifestations (principal)

== ENCOUNTER 2020-01-03 10:30 | Outpatient (RCR) | payer OTHER | END 2020-01-04 | LOC: M OUTALCOH 10:30 | PROVIDERS: ATTEND Psychiatry & Neurology Addiction Medicine | DX: F11.20 Opioid dependence, uncomplicated (principal); F15.20 Other stimulant dependence, uncomplicated; F17.200 Nicotine dependence, unspecified, uncomplicated ==

== ENCOUNTER 2020-01-31 11:00 | Outpatient (RCR) | payer OTHER | END 2020-02-03 | LOC: M OUTALCOH 11:00 | PROVIDERS: ATTEND Psychiatry & Neurology Addiction Medicine | DX: F15.20 Other stimulant dependence, uncomplicated (principal); F11.20 Opioid dependence, uncomplicated; F12.10 Cannabis abuse, uncomplicated; F17.200 Nicotine dependence, unspecified, uncomplicated ==

== ENCOUNTER 2020-02-29 13:37 | Outpatient (RCR) | payer OTHER | END 2020-03-05 | LOC: M OUTALCOH 13:37 | PROVIDERS: ATTEND Psychiatry & Neurology Addiction Medicine | DX: F15.20 Other stimulant dependence, uncomplicated (principal); F11.20 Opioid dependence, uncomplicated; F12.10 Cannabis abuse, uncomplicated; F17.200 Nicotine dependence, unspecified, uncomplicated ==

== ENCOUNTER → 2020-04-04 | Outpatient (RCR) | payer OTHER | LOC: M OUTALCOH 03-08 16:00 | PROVIDERS: ATTEND Psychiatry & Neurology Addiction Medicine | DX: F15.20 Other stimulant dependence, uncomplicated (principal); F11.20 Opioid dependence, uncomplicated; F12.10 Cannabis abuse, uncomplicated; F17.200 Nicotine dependence, unspecified, uncomplicated ==

== ENCOUNTER 2020-05-01 16:00 | Outpatient (RCR) | payer OTHER | END 2020-05-05 | LOC: M OUTALCOH 16:00 | PROVIDERS: ATTEND Psychiatry & Neurology Addiction Medicine | DX: F15.20 Other stimulant dependence, uncomplicated (principal); F11.20 Opioid dependence, uncomplicated; F12.10 Cannabis abuse, uncomplicated; F17.200 Nicotine dependence, unspecified, uncomplicated ==

== ENCOUNTER 2020-06-01 09:00 | Outpatient (RCR) | payer OTHER | END 2020-06-05 | LOC: M OUTALCOH 09:00 | PROVIDERS: ATTEND Psychiatry & Neurology Addiction Medicine | DX: F15.20 Other stimulant dependence, uncomplicated (principal); F11.20 Opioid dependence, uncomplicated; F12.10 Cannabis abuse, uncomplicated; F17.200 Nicotine dependence, unspecified, uncomplicated ==

== ENCOUNTER → 2020-07-05 | Outpatient (RCR) | payer OTHER | LOC: M OUTALCOH 06-06 13:39 | PROVIDERS: ATTEND Psychiatry & Neurology Addiction Medicine | DX: F15.20 Other stimulant dependence, uncomplicated (principal); F11.20 Opioid dependence, uncomplicated; F12.10 Cannabis abuse, uncomplicated; F17.200 Nicotine dependence, unspecified, uncomplicated ==

== ENCOUNTER 2020-08-04 08:45 | Outpatient (RCR) | payer OTHER | END 2020-08-05 | LOC: M OUTALCOH 08:45 | PROVIDERS: ATTEND Psychiatry & Neurology Addiction Medicine | DX: F15.20 Other stimulant dependence, uncomplicated (principal); F11.20 Opioid dependence, uncomplicated; F12.10 Cannabis abuse, uncomplicated; F17.200 Nicotine dependence, unspecified, uncomplicated ==

== ENCOUNTER 2020-08-30 08:45 | Outpatient (RCR) | payer OTHER | END 2020-09-04 | LOC: M OUTALCOH 08:45 | PROVIDERS: ATTEND Psychiatry & Neurology Addiction Medicine | DX: F15.20 Other stimulant dependence, uncomplicated (principal); F11.20 Opioid dependence, uncomplicated; F12.10 Cannabis abuse, uncomplicated; F17.200 Nicotine dependence, unspecified, uncomplicated ==

== ENCOUNTER 2020-09-06 08:45 | Outpatient (RCR) | payer OTHER | END 2020-10-05 | LOC: M OUTALCOH 08:45 | PROVIDERS: ATTEND Psychiatry & Neurology Addiction Medicine | DX: F15.20 Other stimulant dependence, uncomplicated (principal); F11.20 Opioid dependence, uncomplicated; F12.10 Cannabis abuse, uncomplicated; F17.200 Nicotine dependence, unspecified, uncomplicated ==

== ENCOUNTER → 2020-10-16 | Outpatient (CLI) | payer OTHER | LOC: M OUTALCOH 10:07 | PROVIDERS: ATTEND Psychiatry & Neurology Addiction Medicine | DX: F11.20 Opioid dependence, uncomplicated (principal); F10.10 Alcohol abuse, uncomplicated; F15.10 Other stimulant abuse, uncomplicated ==

== ENCOUNTER 2020-11-01 11:21 | Outpatient (RCR) | payer OTHER | END 2020-11-05 | LOC: M OUTALCOH 11:21 | PROVIDERS: ATTEND Psychiatry & Neurology Addiction Medicine | DX: F15.20 Other stimulant dependence, uncomplicated (principal); F11.20 Opioid dependence, uncomplicated; F12.10 Cannabis abuse, uncomplicated; F17.200 Nicotine dependence, unspecified, uncomplicated ==

== ENCOUNTER 2020-11-29 14:41 | Outpatient (RCR) | payer OTHER | END 2020-12-03 | LOC: M OUTALCOH 14:41 | PROVIDERS: ATTEND Psychiatry & Neurology Psychiatry | DX: F15.20 Other stimulant dependence, uncomplicated (principal); F11.20 Opioid dependence, uncomplicated; F12.10 Cannabis abuse, uncomplicated; F17.200 Nicotine dependence, unspecified, uncomplicated ==

== ENCOUNTER → 2021-01-03 | Outpatient (RCR) | payer OTHER | LOC: M OUTALCOH 12-04 11:30 | PROVIDERS: ATTEND Psychiatry & Neurology Psychiatry | DX: F15.20 Other stimulant dependence, uncomplicated (principal); F11.20 Opioid dependence, uncomplicated; F12.10 Cannabis abuse, uncomplicated; F17.200 Nicotine dependence, unspecified, uncomplicated ==

== ENCOUNTER → 2021-02-02 | Outpatient (RCR) | payer OTHER | LOC: M OUTALCOH 01-05 15:00 | PROVIDERS: ATTEND Psychiatry & Neurology Psychiatry | DX: F15.20 Other stimulant dependence, uncomplicated (principal); F11.20 Opioid dependence, uncomplicated; F12.10 Cannabis abuse, uncomplicated; F17.200 Nicotine dependence, unspecified, uncomplicated ==

== ENCOUNTER 2021-03-02 13:25 | Outpatient (RCR) | payer OTHER | END 2021-03-05 | LOC: M OUTALCOH 13:25 | PROVIDERS: ATTEND Psychiatry & Neurology Psychiatry | DX: F15.20 Other stimulant dependence, uncomplicated (principal); F11.20 Opioid dependence, uncomplicated; F12.10 Cannabis abuse, uncomplicated; F17.200 Nicotine dependence, unspecified, uncomplicated ==

== ENCOUNTER 2021-04-03 15:00 | Outpatient (RCR) | payer OTHER | END 2021-04-04 | LOC: M OUTALCOH 15:00 | PROVIDERS: ATTEND Psychiatry & Neurology Psychiatry | DX: F15.20 Other stimulant dependence, uncomplicated (principal); F11.20 Opioid dependence, uncomplicated; F12.10 Cannabis abuse, uncomplicated; F17.200 Nicotine dependence, unspecified, uncomplicated ==

== ENCOUNTER 2021-04-18 23:05 | Emergency (ER) | payer OTHER ==
[~2021-04-18] VITALS: Ht 180.3 cm; Wt 62.6 kg
[2021-04-18 23:05] VITALS: BP 133/94
[2021-04-18] MEDS ORDERED: SUBO8MIS SL (23:13)
[2021-04-18] MEDS ORDERED: WELLTAB40 PO (23:13)
[2021-04-18] MEDS ORDERED: OMEP-221 PO (23:13)
[2021-04-19] MEDS ORDERED: QUET200T2 (23:42)
[2021-04-19] MEDS ORDERED: QUET25TA3 (23:42)
== END 2021-04-19 00:05 | disposition left against medical advice (07) ==
LOC: M ED 23:05
DX: Z53.21 Procedure and treatment not carried out due to patient leaving prior to being seen by health care provider (principal)

== ENCOUNTER 2021-04-19 23:25 | Emergency (ER) | payer OTHER ==
[~2021-04-19] VITALS: Ht 180.3 cm; Wt 67.7 kg
[~2021-04-19 23:25] MED LIST: OMEP-221 PO; SUBO8MIS SL; WELLTAB40 PO
[2021-04-19] MEDS ORDERED: QUET25TA3 (23:42)
[2021-04-19] MEDS ORDERED: QUET200T2 (23:42)
[2021-04-20 01:26] LABS: HEMATOCRIT 39.1 % (42.0-52.0); HEMOGLOBIN 13.5 g/dl (13.5-17.5); MEAN CORPUSCULAR HGB CONC 34.5 g/dl (32.0-36.5); MEAN CORPUSCULAR VOLUME 83.9 fl (80.0-96.0); PLATELET COUNT, AUTOMATED 292 10^3/uL (150-450); RED BLOOD COUNT 4.66 10^6/uL (4.30-6.10); WHITE BLOOD COUNT 12.6 10^3/uL (4.0-10.0)
[2021-04-20 01:49] LABS: AMPHETAMINES LEVEL URINE NEGATIVE (NEGATIVE); BARBITURATES URINE NEGATIVE (NEGATIVE); BENZODIAZEPINES URINE NEGATIVE (NEGATIVE); CANNABINOIDS URINE POSITIVE (NEGATIVE); COCAINE METABOLITE URINE NEGATIVE (NEGATIVE); METHADONE URINE NEGATIVE (NEGATIVE); OPIATES URINE NEGATIVE (NEGATIVE); PHENCYCLIDINE URINE NEGATIVE (NEGATIVE)
[2021-04-20 01:58] LABS: ACETAMINOPHEN LEVEL < 2.0 UG/ML (10.0-30.0); ALBUMIN 4.2 GM/DL (3.2-5.2); ALT/SGPT 28 U/L (12-78); BILIRUBIN,DIRECT 0.2 MG/DL (0.0-0.2); BILIRUBIN,TOTAL 0.7 MG/DL (0.2-1.0); BLOOD UREA NITROGEN 14 MG/DL (7-18); CALCIUM LEVEL 9.1 MG/DL (8.5-10.1); CARBON DIOXIDE LEVEL 25 MEQ/L (21-32); CHLORIDE LEVEL 104 MEQ/L (98-107); CREATININE FOR GFR 1.15 MG/DL (0.70-1.30); ETHYL ALCOHOL (ETHANOL) < 0.003 % (0.000-0.010); GLOMERULAR FILTRATION RATE > 60.0 (>60); GLUCOSE, FASTING 82 MG/DL (70-100); POTASSIUM SERUM 4.1 MEQ/L (3.5-5.1); SALICYLATE LEVEL 1.8 MG/DL (5.0-30.0); SODIUM LEVEL 139 MEQ/L (136-145)
[2021-04-20 08:59] VITALS: BP 115/70
== END 2021-04-20 08:59 | disposition home or self-care (01) ==
LOC: M ED 23:25
DX: F15.10 Other stimulant abuse, uncomplicated (principal); F90.9 Attention-deficit hyperactivity disorder, unspecified type; Z79.899 Other long term (current) drug therapy; Z88.0 Allergy status to penicillin

== ENCOUNTER 2021-05-02 15:39 | Outpatient (RCR) | payer OTHER ==
[~2021-05-02 15:39] MED LIST changes: +QUET200T2; +QUET25TA3
== END 2021-05-05 ==
LOC: M OUTALCOH 15:39
PROVIDERS: ATTEND Psychiatry & Neurology Psychiatry
DX: F15.20 Other stimulant dependence, uncomplicated (principal); F11.20 Opioid dependence, uncomplicated; F12.10 Cannabis abuse, uncomplicated

== ENCOUNTER 2021-05-15 13:10 | Outpatient (RCR) | payer OTHER ==
[~2021-05-15 13:10] MED LIST changes: +QUET1TAB17; -QUET25TA3
== END 2021-06-05 ==
LOC: M OUTALCOH 13:10
PROVIDERS: ATTEND Psychiatry & Neurology Psychiatry
DX: F15.20 Other stimulant dependence, uncomplicated (principal); F11.20 Opioid dependence, uncomplicated; F12.10 Cannabis abuse, uncomplicated; F17.200 Nicotine dependence, unspecified, uncomplicated

== ENCOUNTER 2021-08-25 18:44 | Inpatient (IN) | payer OTHER ==
[~2021-08-25] VITALS: Ht 180.3 cm; Wt 55.5 kg
[~2021-08-25 18:44] MED LIST changes: -QUET200T2; +QUET200T2 PO
--- OUTSIDE RECORDS SUMMARY | 2021-08-25 18:53 | CCD ---
Author Author [facility] Organization [facility] Address Unknown Phone Unavailable Care Team Providers Care Shaker Operator Name Role Phone TONTARSKIRK G ZAIRA PA Unavailable Unavailable TONTARSKI, G ZAIRA PA Unavailable Unavailable TONTARSKI, G ZAIRA PA Unavailable Unavailable TONTARSKI, G ZAIRA PA Unavailable Unavailable TONTARSKI, G ZAIRA PA Unavailable Unavailable TONTARSKI, G ZAIRA PA Unavailable Unavailable TONTARSKI, G ZAIRA PA Unavailable Unavailable TONTARSKI, G ZAIRA PA Unavailable Unavailable TONTARSKI, G ZAIRA PA Unavailable Unavailable TONTARSKI, G ZAIRA PA Unavailable Unavailable TONTARSKI, G ZAIRA PA Unavailable Unavailable TONTARSKI, G ZAIRA PA Unavailable Unavailable TONTARSKI, G ZAIRA PA Unavailable Unavailable TONTARSKI, G ZARIA PA Unavailable Unavailable TONTARSKI, G ZAIRA PA Unavailable Unavailable TONTARSKI, G ZAIRA PA Unavailable Unavailable TONTARSKI, G ZAIRA PA Unavailable Unavailable TONTARSKI, G ZAIRA PA Unavailable Unavailable TONTARSKI, G ZAIRA PA Unavailable Unavailable TONTARSKI, G ZAIRA PA Unavailable Unavailable TONTARSKI, G ZAIRA PA Unavailable Unavailable TONTARSKI, G ZAIRA PA Unavailable Unavailable TONTARSKI, G ZAIRA PA Unavailable Unavailable TONTARSKI, G ZAIRA PA Unavailable Unavailable TONTARSKI, G ZAIRA PA Unavailable Unavailable TONTARSKI, G ZAIRA PA Unavailable Unavailable TONTARSKI, G ZAIRA PA Unavailable Unavailable TONTARSKI, G ZAIRA PA Unavailable Unavailable TONTARSKI, G ZAIRA PA Unavailable Unavailable TONTARSKI, G ZAIRA PA Unavailable Unavailable TONTARSKI, G ZAIRA PA Unavailable Unavailable TONTARSKI, G ZAIRA PA Unavailable Unavailable TONTARSKI, G ZAIRA PA Unavailable Unavailable TONTARSKI, G ZAIRA PA Unavailable Unavailable TONTARSKI, G ZAIRA PA Unavailable Unavailable TONTARSKI, G ZAIRA PA Unavailable Unavailable TONTARSKI, G ZAIRA PA Unavailable Unavailable TONTARSKI, G ZAIRA PA Unavailable Unavailable TONTARSKI, G ZAIRA PA Unavailable Unavailable TONTARSKI, G ZAIRA PA Unavailable Unavailable TONTARSKI, G ZAIRA PA Unavailable Unavailable TONTARSKI, G ZAIRA PA Unavailable Unavailable TONTARSKI, G ZAIRA PA Unavailable Unavailable TONTARSKI, G ZAIRA PA Unavailable Unavailable TONTARSKI, G ZAIRA PA Unavailable Unavailable TONTARSKI, G ZAIRA PA Unavailable Unavailable TONTARSKI, G ZAIRA PA Unavailable Unavailable TONTARSKI, G ZAIRA PA Unavailable Unavailable Re-disclosure Warning The records that you are about to access may contain information from federally-assisted alcohol or drug abuse programs. If such information is present, then the following federally mandated warning applies: This information has been disclosed to you from records protected by federal confidentiality rules (42 CFR part 2). The federal rules prohibit you from making any further disclosure of this information unless further disclosure is expressly permitted by the written consent of the person to whom it pertains or as otherwise permitted by 42 CFR part 2. A general authorization for the release of medical or other information is NOT sufficient for this purpose. The Federal rules restrict any use of the information to criminally investigate or prosecute any alcohol or drug abuse patient.The records that you are about to access may contain highly sensitive health information, the redisclosure of which is protected by Article 27-F of the [facility] Public Health law. If you continue you may have access to information: Regarding HIV / AIDS; Provided by facilities licensed or operated by the [facility] Office of Mental Health; or Provided by the [facility] Office for People With Developmental Disabilities. If such information is present, then the following [facility] mandated warning applies: This information has been disclosed to you from confidential records which are protected by state law. State law prohibits you from making any further disclosure of this information without the specific written consent of the person to whom it pertains, or as otherwise permitted by law. Any unauthorized further disclosure in violation of state law may result in a fine or fdc sentence or both. A general authorization for the release of medical or other information is NOT sufficient authorization for further disc losure. Encounters Encounter Providers Location Date Indications Data Source(s ) Outpatient Attender: Z[facility]A [facility] 10/12/2020 10:30:00 AM EST [facility] (Valentin Merrill MD) Medications No Information Insurance Providers Payer name Policy type / Coverage type Policy ID Covered green party ID Covered green party's relationship to doe Policy Doe Plan Information Managed Care Von P [id number] S [id number] VON [id number] SP [id number] 200 Medicaid S [id number] S [id number] [facility] [id number] SP [id number] [facility] [id number] SP [id number] MEDICAID -O/P EMERGENCY ROOM [id number] [employer] [facility] [id number] SP [id number] MEDICAID [id number] SP [id number] MEDICAID [id number] SP [id number] O UNAVAILABLE UNAVAILA BLE SELF-PAY UNAVAILABLE UNAVAILA BLE [facility] OFFICE OF MENTAL HEALTH [id number] S [id number] VON [id number] SP [id number] 200 SELF PAY ONLY UN SP [facility] [id number] SP [id number] [facility] [id number] Problems, Conditions, and Diagnoses No Information Surgeries/Procedures No Information Results No Information Social History No Information
[2021-08-25] MEDS ORDERED: CHARCOAL ACTIVATED LIQUID 25 GM/120 ML BTL PO ONE (19:00)
[2021-08-25 19:26] LABS: BASO # 0.1 10^3/uL (0.0-0.2); EOS # 0.4 10^3/uL (0.0-0.5); EOS % 3.1 % (0.0-3.0); HEMATOCRIT 39.9 % (42.0-52.0); HEMOGLOBIN 13.6 g/dl (13.5-17.5); LYMPH # 1.9 10^3/uL (1.5-5.0); LYMPH % 17.4 % (24.0-44.0); MEAN CORPUSCULAR HEMOGLOBIN 29.2 pg (27.0-33.0); MEAN CORPUSCULAR HGB CONC 34.1 g/dl (32.0-36.5); MEAN CORPUSCULAR VOLUME 85.6 fl (80.0-96.0); MONO % 8.8 % (2.0-8.0); NEUTROPHILS # 7.7 10^3/uL (1.5-8.5); NEUTROPHILS % 69.4 % (36.0-66.0); PLATELET COUNT, AUTOMATED 318 10^3/uL (150-450); RED BLOOD COUNT 4.66 10^6/uL (4.30-6.10); WHITE BLOOD COUNT 11.1 10^3/uL (4.0-10.0)
[2021-08-25 20:00] LABS: ACETAMINOPHEN LEVEL < 2.0 UG/ML (10.0-30.0); ALT/SGPT 22 U/L (12-78); BILIRUBIN,DIRECT 0.1 MG/DL (0.0-0.2); BILIRUBIN,TOTAL 0.6 MG/DL (0.2-1.0); BLOOD UREA NITROGEN 10 MG/DL (7-18); CARBON DIOXIDE LEVEL 24 MEQ/L (21-32); CHLORIDE LEVEL 110 MEQ/L (98-107); CREATININE FOR GFR 0.92 MG/DL (0.70-1.30); ETHYL ALCOHOL (ETHANOL) < 0.003 % (0.000-0.010); GLOMERULAR FILTRATION RATE > 60.0 (>60); GLUCOSE, FASTING 97 MG/DL (70-100); POTASSIUM SERUM 4.4 MEQ/L (3.5-5.1); SALICYLATE LEVEL 3.2 MG/DL (5.0-30.0); SODIUM LEVEL 141 MEQ/L (136-145); TOTAL PROTEIN 7.5 GM/DL (6.4-8.2)
[2021-08-25] MEDS ORDERED: LORazepam 2 MG/ML VIAL IV STA ×2 (20:02→20:48)
[2021-08-25] MEDS ORDERED: HOME MED LIST COMPLETE! XX SCH (20:15)
--- OUTSIDE RECORDS SUMMARY | 2021-08-25 20:15 | CCD ---
Author Author [facility] Organization [facility] Address Unknown Phone Unavailable Care Team Providers Care Pipe Supervisor Name Role Phone TONTARSKIRK G ZAIRA PA [...] is protected by Article 27-F of the [facility] Public Health law. If you continue you may have access to information: Regarding HIV / AIDS; Provided by facilities licensed or operated by the [facility] Office of Mental Health; or Provided by the [facility] Office for People With Developmental Disabilities. If such information is present, then the following [facility] mandated warning applies: This information has been [...] law may result in a fine or fci sentence or both. A general authorization for the release of medical or other information is NOT sufficient authorization for further disc losure. Encounters Encounter Providers Location Date Indications Data Source(s ) Outpatient Attender: ZAIRA CORRAL [facility] 10/12/2020 10:30:00 AM EST [facility] (Valentin Merrill MD) Medications No Information Insurance Providers Payer name Policy type / Coverage type Policy ID Covered libertarian ID Covered libertarian's relationship to doe Policy Doe Plan Information Managed Care Von P [id number] S [id number] VON [id number] SP [id number] 200 Medicaid S [id number] S [id number] [facility] [id number] SP [id number] [facility] [id number] SP [id number] MEDICAID -O/P EMERGENCY ROOM [id number] [employer]AN [facility] [id number] SP [id number] MEDICAID [id number] SP [id number] MEDICAID [id number] SP [id number] O UNAVAILABLE UNAVAILA BLE SELF-PAY UNAVAILABLE UNAVAILA BLE [facility] OFFICE OF MENTAL HEALTH [id number] S [id number] VON [id number] SP [id number] 200 SELF PAY ONLY UN SP [facility] [id number] SP [id number] [facility] [id number] 18 [id number] Problems, Conditions, and Diagnoses No Information Surgeries/Procedures No Information Results No Information Social History No Information
--- OUTSIDE RECORDS SUMMARY | 2021-08-25 20:16 | CCD ---
Author Author [facility] Organization [facility] Address Unknown Phone Unavailable Care Team Providers Care Pressure Welder Name Role Phone TONTARSKIRK G ZAIRA PA [...] is protected by Article 27-F of the [facility] Public Health law. If you continue you may have access to information: Regarding HIV / AIDS; Provided by facilities licensed or operated by the [facility] Office of Mental Health; or Provided by the [facility] Office for People With Developmental Disabilities. If such information is present, then the following [facility] mandated warning applies: This information has been [...] law may result in a fine or chcf sentence or both. A general authorization for [...] Doe Plan Information Managed Care Von P [id number] S [id number] VON [id number] SP [id number] 200 Medicaid S [id number] S [id number] [facility] [id number] SP [id number] [facility] [id number] SP [id number] MEDICAID -O/P EMERGENCY ROOM [id number] UN COMMUNITY PLAN [facility] [id number] SP [id number] MEDICAID [id number] SP [id number] MEDICAID [id number] SP [id number] O UNAVAILABLE UNAVAILA BLE SELF-PAY UNAVAILABLE UNAVAILA BLE [facility] OFFICE OF MENTAL HEALTH [id number] S [id number] VON [id number] SP [id number] 200 SELF PAY ONLY UN SP [facility] [id number] SP [id number] [facility] [id number] 18 [id number] Problems, Conditions, and Diagnoses No Information Surgeries/Procedures No Information Results No Information Social History No Information
[2021-08-25 21:17] LABS: RSV AMPLIFICATION NEGATIVE (NEGATIVE)
[2021-08-25] MEDS ORDERED: LORazepam 2 MG/ML VIAL IV PRN (21:30)
[2021-08-25 21:59] LABS: INR 1.1; PROTHROMBIN TIME 14.6 SECONDS (12.7-14.5)
--- NOTE | 2021-08-25 22:00 | HPEPDOC ---
[facility] Medical History & Physical Date of Admission Aug 25, 2021 Date of Service: Aug 25, 2021 Attending Physician: DANYELLE LARIOS MD History and Physical CHIEF COMPLAINT: Suicide Attempt HISTORY OF PRESENT ILLNESS: Patient is a 35-year-old male with a history of drug abuse, anxiety, and depression who presents after suicidal attempt. Patient was prescribed Wellbutrin by Dr. Naranjo, who he sees for rehabilitation from history of drug use. Patient reports taking 7 300 tablets of his Wellbutrin XL for the past 3 to 5 days. Triage nurse in the ED reports that the patient could not discern between hearing voices and reality. Poison control was contacted by the ED, who suggested that patient should be given oral charcoal, and on cardiac telemetry to monitor for any arrhythmias. Patient was given oral charcoal in the ED. Patient was also given IV Ativan x2 in the ED. ED EKG showed normal sinus rhythm, Q waves in 2 3 and aVF, and QTC of 462. Patient reports that he lives with his mother at home. He reports some concern about his domestic life and mentions that he feels very sorry about what he did to his child. However while he is about to tell his story he becomes tearful and develops tangential speech. He then becomes paranoid and states that he knows that someone is going to kill him. REVIEW OF SYSTEMS: General: Patient denies fevers HEENT: Patient denies headaches Cardiovascular: Patient denies chest pain Respiratory: Patient denies shortness of breath, cough GI: Patient denies abdominal pain, nausea, vomiting, diarrhea : Patient denies increased frequency or pain with urination Extremities: Patient denies swelling or pain in extremities Neurological: Patient denies numbness or tingling in legs Skin: Patient denies any new rashes or lesions. Hematologic: Patient denies any easy bruising. Lymphatic: Patient denies any lumps or bumps in neck, axilla, or groin Psychological: Patient reports auditory hallucinations for the past 5 days, he reports visual hallucinations at baseline. PAST MEDICAL HISTORY: Anxiety Depression Drug abuse Alcohol abuse PAST SURGICAL HISTORY: Denies SOCIAL HISTORY: Patient states that he resides with his mother in [place]. Tobacco use: Reports 5 cigarettes/day ETOH: Patient reports that he drinks often, however is able to quantify, reports drinking Garrick Monroy and beers. Illicit drug use: Methamphetamines in the past FAMILY HISTORY: Denies ALLERGIES: Please see below. HOME MEDICATIONS: Please see below. PHYSICAL EXAMINATION: Vital Signs Date Time Temp Pulse Resp B/P (MAP) Pulse Ox O2 Delivery O2 Flow Rate FiO2 08/25/21 18:46 99.5 99 18 131/91 (104) 100 Room Air GENERAL APPEARANCE: Patient is visually restless, anorexic appearing, sitting up right inguinal. HEENT: Normocephalic atraumatic, mucous membranes are covered in charcoal. CARDIOVASCULAR: Tachycardic, no murmurs rubs or gallops appreciated. LUNGS: Clear to auscultation bilaterally, no wheezes rales or rhonchi ABDOMEN: soft, nontender, nondistended, scaphoid abdomen. MUSCULOSKELETAL: Upper and lower extremity strength 5 out of 5. EXTREMITIES: No clubbing, edema, soiled fingernails. NEUROLOGICAL: No focal neurological deficits, cranial nerves II to XII intact PSYCHIATRIC: Patient displays paranoia, tangential speech at times due to preoccupation about someone trying to kill him, anxious, restless. LABORATORY DATA: MICROBIOLOGY: Negative respiratory panel ASSESSMENT/PLAN: #Suicidal attempt secondary to Wellbutrin overdose Continue neurologic checks, Wellbutrin decreases seizure threshold Patient is on aspiration precautions due to possible seizures from Wellbutrin overdose -seizure precautions Monitor magnesium & CPK levels Continue to monitor electrolyte panel Continuous telemetry Continuous pulse ox One-on-one sitter -Psych consult by day time team #Sarcopenia -check per-albumin Dietary consult placed since patient appears malnourished Start high-protein diet. #History of alcohol use disorder Ativan 1 mg every 4 hours per CIWA protocol Continue to monitor LFTs #History of drug use CFS order VTE prophylaxis: Teds and sequentials Disposition: Admit to PCU, expect at least 2 midnight stay prior to transfer to [facility] Home Medications Scheduled Bupropion HCl (Wellbutrin Xl) 300 Mg Tab.er.24h, 300 MG PO QAM Omeprazole (Omeprazole) 40 Mg Capsule.dr, 40 MG PO DAILY Quetiapine Fumarate (Quetiapine Fumarate) 200 Mg Tablet, 200 MG PO QHS Allergies Coded Allergies: Penicillins (Verified Allergy, Intermediate, unknown, 04/18/21) A-FIB/CHADSVASC A-FIB History Current/History of A-Fib/PAF?: No Current PO Anticoag Therapy: No GME ATTESTATION GME ATTESTATION My faculty preceptor for this patient encounter was physically present during the encounter and was fully available. All aspects of the patient interview, examination, medical decision making process, and medical care plan development were reviewed and approved by the faculty preceptor. The faculty preceptor is aware and concurs with the plan as stated in the body of this note and will attest to such by his/her cosignature. ATTENDING NOTE time of service 900pm I examined the patient, discussed the case with and agree with the findings as documented. Rainer Arteaga DO Aug 25, 2021 22:00 DANYELLE LARIOS MD Aug 26, 2021 03:08
[2021-08-25 22:38] VITALS: BP 128/82
[2021-08-26] VITALS (8 sets, daily range): BP systolic 113–130; BP diastolic 58–82
[2021-08-26] MEDS ORDERED: diazePAM 10MG/2ML SYRINGE (J3360 PER 5MG) IV PRN (01:20)
[2021-08-26] MEDS ORDERED: NS 1,000 ML IV SCH (01:20)
[2021-08-26 06:52] LABS: HEMATOCRIT 38.4 % (42.0-52.0); MEAN CORPUSCULAR HEMOGLOBIN 29.3 pg (27.0-33.0); MEAN CORPUSCULAR HGB CONC 33.9 g/dl (32.0-36.5); MEAN CORPUSCULAR VOLUME 86.7 fl (80.0-96.0); PLATELET COUNT, AUTOMATED 294 10^3/uL (150-450); RED BLOOD COUNT 4.43 10^6/uL (4.30-6.10); WHITE BLOOD COUNT 9.8 10^3/uL (4.0-10.0)
[2021-08-26 07:20] LABS: ALBUMIN 3.8 GM/DL (3.2-5.2); ALT/SGPT 21 U/L (12-78); BILIRUBIN,TOTAL 0.5 MG/DL (0.2-1.0); BLOOD UREA NITROGEN 11 MG/DL (7-18); CALCIUM LEVEL 8.9 MG/DL (8.5-10.1); CARBON DIOXIDE LEVEL 27 MEQ/L (21-32); CHLORIDE LEVEL 113 MEQ/L (98-107); GLOMERULAR FILTRATION RATE > 60.0 (>60); GLUCOSE, FASTING 99 MG/DL (70-100); MAGNESIUM LEVEL 2.2 MG/DL (1.8-2.4); POTASSIUM SERUM 4.3 MEQ/L (3.5-5.1); SODIUM LEVEL 144 MEQ/L (136-145)
--- NOTE | 2021-08-26 09:01 | ECGEPIP ---
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
[2021-08-26] MEDS: MULTIVITAMINS/MINERALS THERAP 1 TAB PO SCH (09:27)
[2021-08-26] MEDS: OMEPRAZOLE 20 MG CAP PO SCH (09:28)
[2021-08-26] MEDS: THIAMINE 100 MG TAB PO SCH ×2 (09:32→20:48)
[2021-08-26] MEDS: FOLIC ACID 1 MG TAB PO SCH (09:32)
[2021-08-26] MEDS: LORazepam 2 MG TAB PO PRN ×2 (09:42→20:48)
--- NOTE | 2021-08-26 12:08 | IPNPDOC ---
Subjective Date Seen The patient was seen on 08/26/21. Subjective Chief Complaint/HPI He complains of paranoia. Says its really bad. think someone is out to kill him. Feels very tired and wants to sleep. Wanted to talk to therapist / psychiatrist about his paranoia. Patient refuses to wear the telemetry and he think peaople are watching him through it. Objective Physical Examination General Exam: Positive: Alert, Cooperative, No Acute Distress Eye Exam: Positive: PERRLA, Conjunctiva & lids normal, EOMI; Negative: Sclera icteric ENT Exam: Positive: Atraumatic, Mucous membr. moist/pink, Pharynx Normal Neck Exam: Positive: Supple; Negative: JVD, thyromegaly Chest Exam: Positive: Clear to auscultation, Normal air movement Heart Exam: Positive: Rate Normal, Regular Rhythm, Normal S1, Normal S2; Negative: Murmurs, Rubs Abdomen Exam: Positive: Normal bowel sounds, Soft; Negative: Tenderness Extremity Exam: Negative: Clubbing, Cyanosis, Edema Psych Exam: Positive: Memory Intact, Oriented x 3 Assessment /Plan Assessment Patient is a 35-year-old male with a history of drug abuse, anxiety, and depression presented to ED after a suicidal attempt. Patient was prescribed Wellbutrin by Dr. Naranjo, who he sees for rehabilitation from history of drug use. Patient reported taking 7 x 300 tablets of his Wellbutrin XL for the past 3 to 5 days. Poison control was contacted by the ED, who suggested that patient should be given oral charcoal, monitored on telemetry for any arrhythmias. Patient was given oral charcoal in the ED. Patient was also given IV Ativan x2 in the ED. EKG in ED showed normal sinus rhythm, Q waves in 2 3 and aVF, and QTC of 462. Suicidal attempt secondary to Wellbutrin overdose monitor for seizures, seizure precautions, aspiration precautions, telemetry for 24 hours reccomended by telemetry Patient refuses to wear the telemetry wires due to his paranoid ideas of people watching. Will get ekg this morning. One-on-one sitter Dr dickerson consulted. Sarcopenia prealbumin is low normal. high protein diet. History of alcohol use disorder on [facility] protocol History of drug use no issues at this time. Plan/VTE VTE Prophylaxis Ordered?: Yes VS, I&O, 24H, Fishbone Vital Signs/I&O Vital Signs Date Time Temp Pulse Resp B/P (MAP) Pulse Ox O2 Delivery O2 Flow Rate FiO2 08/26/21 07:56 98.0 100 15 130/58 (82) 97 Room Air Laboratory Data 24H LABS Laboratory Tests 2 08/25/21 19:12: Immature Granulocyte % (Auto) 0.3, Neutrophils (%) (Auto) 69.4H, Lymphocytes (%) (Auto) 17.4L, Monocytes (%) (Auto) 8.8H, Eosinophils (%) (Auto) 3.1H, Basophils (%) (Auto) 1.0, Neutrophils # (Auto) 7.7, Lymphocytes # (Auto) 1.9, Monocytes # (Auto) 1.0H, Eosinophils # (Auto) 0.4, Basophils # (Auto) 0.1, Nucleated Red Blood Cells % (auto) 0.0, Anion Gap 7L, Glomerular Filtration Rate > 60.0, Ca lcium Level 9.0, Total Bilirubin 0.6, Direct Bilirubin 0.1, Aspartate Amino Transf (AST/SGOT) 32, Alanine Aminotransferase (ALT/SGPT) 22, Alkaline Phosphatase 75, Total Creatine Kinase 265, Total Protein 7.5, Albumin 4.0, Albumin/Globulin Ratio 1.1, Thyroid Stimulating Hormone (TSH) 1.970, Salicylates Level 3.2L, Acetaminophen Level < 2.0L, Ethyl Alcohol Level < 0.003 08/25/21 19:26: Bedside Glucose (Misc Panel) 95 08/25/21 20:17: Coronavirus (COVID-19)(PCR) NEGATIVE, Influenza Type A (RT-PCR) NEGATIVE, Influenza Type B (RT-PCR) NEGATIVE, Respiratory Syncytial Virus (PCR) NEGATIVE 08/25/21 21:29: Prothrombin Time 14.6H, Prothromb Time International Ratio 1.10 08/26/21 06:42: Nucleated Red Blood Cells % (auto) 0.0, Anion Gap 4L, Glomerular Filtration Rate > 60.0, Calcium Level 8.9, Magnesium Level 2.2, Total Bilirubin 0.5, Aspartate Amino Transf (AST/SGOT) 16, Alanine Aminotransferase (ALT/SGPT) 21, Alkaline Phosphatase 71, Total Creatine Kinase 196, Total Protein 7.0, Albumin 3.8, Albumin/Globulin Ratio 1.2, Prealbumin 20.8 CBC/BMP Laboratory Tests 08/25/21 19:12 08/26/21 06:42 Jeanne Vidal MD Aug 26, 2021 08:22
[2021-08-27 06:00] VITALS: BP 112/83
[2021-08-27 07:28] LABS: BASO # 0.1 10^3/uL (0.0-0.2); BASO % 1.6 % (0.0-1.0); EOS # 0.5 10^3/uL (0.0-0.5); EOS % 7.8 % (0.0-3.0); HEMATOCRIT 40.8 % (42.0-52.0); HEMOGLOBIN 13.6 g/dl (13.5-17.5); LYMPH % 31.3 % (24.0-44.0); MEAN CORPUSCULAR HEMOGLOBIN 29.2 pg (27.0-33.0); MEAN CORPUSCULAR HGB CONC 33.3 g/dl (32.0-36.5); MEAN CORPUSCULAR VOLUME 87.6 fl (80.0-96.0); MONO # 0.6 10^3/uL (0.0-0.8); MONO % 9.3 % (2.0-8.0); NEUTROPHILS # 3.2 10^3/uL (1.5-8.5); NEUTROPHILS % 49.8 % (36.0-66.0); PLATELET COUNT, AUTOMATED 274 10^3/uL (150-450); RED BLOOD COUNT 4.66 10^6/uL (4.30-6.10); WHITE BLOOD COUNT 6.4 10^3/uL (4.0-10.0)
[2021-08-27 07:53] LABS: BLOOD UREA NITROGEN 13 MG/DL (7-18); CALCIUM LEVEL 8.8 MG/DL (8.5-10.1); CARBON DIOXIDE LEVEL 27 MEQ/L (21-32); CHLORIDE LEVEL 109 MEQ/L (98-107); CREATININE FOR GFR 0.87 MG/DL (0.70-1.30); GLOMERULAR FILTRATION RATE > 60.0 (>60); GLUCOSE, FASTING 93 MG/DL (70-100); SODIUM LEVEL 140 MEQ/L (136-145)
[2021-08-27] MEDS: FOLIC ACID 1 MG TAB PO SCH (08:24)
[2021-08-27] MEDS: THIAMINE 100 MG TAB PO SCH (08:24)
[2021-08-27] MEDS: MULTIVITAMINS/MINERALS THERAP 1 TAB PO SCH (08:24)
[2021-08-27] MEDS: OMEPRAZOLE 20 MG CAP PO SCH (08:24)
--- NOTE | 2021-08-27 16:21 | ECGEPIP ---
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 Decreased heart rate compared with 08/25/2021. Electronically Signed on 08-27-2021 16:21:08 EST by Glen Cobb
--- NOTE | 2021-08-27 16:22 | ECGEPIP ---
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 Within normal limits For age. No significant change compared with 08/26/2021. Electronically Signed on 08-27-2021 16:21:59 EST by Glen Cobb
--- NOTE | 2021-08-28 09:45 | MHCR ---
[facility] CONSULTATION DATE: 08/27/2021 This is a video assessment. He is aware of it, agrees to it and its limitations. He is on the medical floor at [facility]. He is accompanied by staff. I am at the clinic. CHIEF COMPLAINT: He has been paranoid. SUBJECTIVE: Chart is reviewed. The patient is interviewed. I also spoke with the patient's mother with his verbal permission, Sara Rowley ([phone]). He has a history of drug misuse, sees Dr. Mendosa. Is also treated for depression and anxiety, apparently. He is on Wellbutrin 300 mg daily, says he takes it regularly, but that about a year or so ago, someone informed him that a person can "get high" on the Wellbutrin. He says he did not initially believe it, as it is not a controlled substance. He then started snorting it and noticed that he did feel high. Says has done that periodically, but a lot of occasions takes it regularly by mouth. The other day, says went "overboard" and that he snorted several pills, he anticipates there were about seven pills, did that for a couple of days, and then began hearing voices, says felt paranoid, was convinced the FBI were after him or that others were out to get him or that the police would come. Says he told his mother, his brother who he lives with. Says became increasingly concerned. Did feel these were the effects of the drug itself. They brought him to the hospital. He denies he was suicidal, but does say he thought of indicating that he was suicidal in order to get help. Says has no intentions of killing himself, says he is afraid of . He puts it down to the impact of the drug use. Describes himself as an "addict" and that he will use, always use, whenever he has the opportunity. Says he had an appointment at [facility], has been speaking with them on the phone and is established there. Says will be seen there for substance abuse as well as mental health. Says was hospitalized psychiatry in the past, but not recently. He also says he completed drug rehabilitation at [facility] early last year, 2019. Says that was his second rehabilitation. Says he generally does well as long as he does not use, but has a hard time staying away from stimulants. Says has used amphetamines in the past and stimulants and has noticed that he gets paranoid or that he hears voices. Says he is generally "a paranoid person" in that he does not trust others easily, but that this was out of the ordinary. Denies any such thoughts at present, or any thoughts of harming himself. 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 Has been there for the last month. Says has been doing well there and, in fact, wishes to go home so he does not miss work. He describes himself as close to his mother. He says they get along. He has been at her place for the last month or two. Says she and his younger brother are helping to arrange for a place for him. Says he plans to get his own place. Has a 4-year-old son who he sees fairly regularly, gets along with son's mother. Says has a 7-year-old daughter who is adopted, who he has no contact with. Denies he has been pervasively depressed or that he has been suicidal. PAST PSYCHAITRIC HISTORY: Has seen [facility] ____ in the past, was somewhat vague about this. Denies has attempted taking his life. SUBSTANCE ABUSE HISTORY: He has a long history of substance misuse, mostly amphetamines, alcohol in the past as well. Has been seen by Navya Veliz, who he says has not seen him in quite a while. He gets his prescriptions from him and is planning to be seen at [facility]. MEDICATIONS: These include: - Seroquel 200 mg at night, says gets it from Dr. Mendosa as well and that he uses it for sleep - He is also on omeprazole 40 mg daily - Wellbutrin 300 mg daily Says there are times when he misses the Wellbutrin, but for no more than a day or so. It should be noted it he was aware that he may get a seizure with excess Wellbutrin, was concerned about that, says started getting tingling sensation on his lips. SOCIAL HISTORY: Lives with his mother, younger brother. Says gets along with them. Has other siblings, all younger. Gets along with his father, who lives elsewhere. His parents are . He started a new job, likes it, has been there for about a month or so. ALLERGIES: PENICILLINS. MENTAL STATUS EXAMINATION: He is sitting up in bed. He is cooperative. He is fairly neat. There is no agitation. No psychomotor retardation. He is coherent. Speech normal in amount and rate. Affect reactive, broad. Denies any thoughts of harming himself or anyone else. No evidence of any psychosis. Does not appear to be internally preoccupied. No delusional ideations elicited at present. Cognition grossly intact. Intellect average. Judgment good. Insight fair to good. ASSESSMENT: 1. Bupropion induced psychosis. 2. Methamphetamine use disorder. 3. Unspecified depressive disorder. Has a history of drug use, has been misusing bupropion intentionally, particularly lately, over the last few days, with resulting psychotic features in terms of paranoia, hallucinations. Currently no evidence of that. It should be noted, collateral history from his mother matched the person's version. She indicates that the paranoia that he was describing was quite unusual and developed rather quickly and is always concerned about what drugs he uses. She says otherwise, he generally has been doing well, including at work, as far as she can tell. There are times when he does not sleep very well. His appetite is a bit diminished. He has never indicated any active thoughts of hurting himself recently. She says she and her other son is concerned about the level of the paranoia and his acting on it. She has no concerns about him returning home if he is cleared to do so. RECOMMENDATIONS: In view of the above, he does not require inpatient psychiatric hospitalization. Psychosis appears to have cleared and has been secondary to the misuse of bupropion. I would recommend that he follow with outpatient care at [facility] and that he continue taking the Wellbutrin 300 mg orally, ought not to stop it suddenly without discussing it with his clinician, Dr. Mendosa. It is possible to look at alternatives for Wellbutrin to help address anxiety and depression. That is best done in the outpatient setting. I spoke with the patient on the phone after speaking with his mother and gave him my recommendations. He is aware that it will be up to the hospitalist as to when he is discharged. He is to follow up as indicated above. Thank you for the consultation. If there are any questions, please call. The assessment took 35 minutes.
== END 2021-08-27 19:58 | disposition home or self-care (01) | DRG 812 ==
LOC: M ED 18:44 → M ED INP 20:09 → ENRESERV 21:45 → M PCU 22:38 → M MSPAV 08-26 16:37
PROVIDERS: ADMIT Internal Medicine; ATTEND Internal Medicine Nephrology
DX: T43.292A Poisoning by other antidepressants, intentional self-harm, initial encounter (principal); F32.A Depression, unspecified; M62.84 Sarcopenia; F10.10 Alcohol abuse, uncomplicated; Z79.899 Other long term (current) drug therapy; Z20.822 Contact with and (suspected) exposure to COVID-19; Z88.8 Allergy status to other drugs, medicaments and biological substances; T14.91XA Suicide attempt, initial encounter; F41.9 Anxiety disorder, unspecified; F15.10 Other stimulant abuse, uncomplicated; F22 Delusional disorders; R44.3 Hallucinations, unspecified

== ENCOUNTER 2021-10-13 19:10 | Emergency (ER) | payer OTHER ==
[~2021-10-13] VITALS: Ht 177.8 cm; Wt 58.7 kg
[2021-10-13 20:19] LABS: BASO # 0.1 10^3/uL (0.0-0.2); BASO % 0.5 % (0.0-1.0); EOS # 0.1 10^3/uL (0.0-0.5); EOS % 0.8 % (0.0-3.0); HEMATOCRIT 39.8 % (42.0-52.0); HEMOGLOBIN 13.5 g/dl (13.5-17.5); LYMPH # 1.3 10^3/uL (1.5-5.0); LYMPH % 9.1 % (24.0-44.0); MEAN CORPUSCULAR HEMOGLOBIN 29.1 pg (27.0-33.0); MEAN CORPUSCULAR HGB CONC 33.9 g/dl (32.0-36.5); MEAN CORPUSCULAR VOLUME 85.8 fl (80.0-96.0); MONO # 0.9 10^3/uL (0.0-0.8); MONO % 6.1 % (2.0-8.0); NEUTROPHILS # 12.2 10^3/uL (1.5-8.5); PLATELET COUNT, AUTOMATED 334 10^3/uL (150-450); RED BLOOD COUNT 4.64 10^6/uL (4.30-6.10); WHITE BLOOD COUNT 14.7 10^3/uL (4.0-10.0)
[2021-10-13 20:47] LABS: OSMOLALITY SERUM 283 MOSM/KG (275-295)
[2021-10-13 20:48] LABS: RSV AMPLIFICATION NEGATIVE (NEGATIVE)
[2021-10-13 20:53] LABS: ACETAMINOPHEN LEVEL < 2.0 UG/ML (10.0-30.0); ALBUMIN 4.3 GM/DL (3.2-5.2); ALT/SGPT 35 U/L (12-78); BILIRUBIN,DIRECT 0.2 MG/DL (0.0-0.2); BILIRUBIN,TOTAL 0.7 MG/DL (0.2-1.0); BLOOD UREA NITROGEN 12 MG/DL (7-18); CALCIUM LEVEL 9.3 MG/DL (8.5-10.1); CARBON DIOXIDE LEVEL 24 MEQ/L (21-32); CHLORIDE LEVEL 106 MEQ/L (98-107); CREATININE FOR GFR 1.04 MG/DL (0.70-1.30); ETHYL ALCOHOL (ETHANOL) < 0.003 % (0.000-0.010); GLOMERULAR FILTRATION RATE > 60.0 (>60); GLUCOSE, FASTING 124 MG/DL (70-100); POTASSIUM SERUM 4.2 MEQ/L (3.5-5.1); SALICYLATE LEVEL 3.3 MG/DL (5.0-30.0); SODIUM LEVEL 137 MEQ/L (136-145)
[2021-10-13 20:57] LABS: AMPHETAMINES LEVEL URINE NEGATIVE (NEGATIVE); BARBITURATES URINE NEGATIVE (NEGATIVE); BENZODIAZEPINES URINE NEGATIVE (NEGATIVE); CANNABINOIDS URINE POSITIVE (NEGATIVE); COCAINE METABOLITE URINE NEGATIVE (NEGATIVE); METHADONE URINE NEGATIVE (NEGATIVE); OPIATES URINE NEGATIVE (NEGATIVE); PHENCYCLIDINE URINE NEGATIVE (NEGATIVE)
[2021-10-13] MEDS ORDERED: OLANZapine ORAL DISINTEGRATING TAB 5MG PO ONE (23:20)
[2021-10-13] MEDS ORDERED: HOME MED LIST COMPLETE! XX SCH (23:20)
[2021-10-13] MEDS ORDERED: LORazepam 2 MG TAB PO ONE (23:20)
[2021-10-14 00:16] VITALS: BP 156/115
== END 2021-10-14 02:02 | disposition home or self-care (01) ==
LOC: M ED 19:10
DX: T43.292A Poisoning by other antidepressants, intentional self-harm, initial encounter (principal); F19.10 Other psychoactive substance abuse, uncomplicated; R00.0 Tachycardia, unspecified; F41.9 Anxiety disorder, unspecified; Z88.0 Allergy status to penicillin

== ENCOUNTER → 2022-04-29 | Outpatient (CLI) | payer OTHER ==
[~2022-04-29] MED LIST changes: +BUPR-69 PO; +NICO14PA TD; -OMEP-221 PO; +OMEP40CA5 PO
== END ==
LOC: M OUTALCOH 10:11
PROVIDERS: ATTEND Psychiatry & Neurology Psychiatry
DX: Z02.9 Encounter for administrative examinations, unspecified (principal)

== ENCOUNTER 2022-06-03 08:40 | Outpatient (RCR) | payer OTHER | END 2022-06-05 | LOC: M OUTALCOH 08:40 | PROVIDERS: ATTEND Psychiatry & Neurology Psychiatry | DX: F11.20 Opioid dependence, uncomplicated (principal); F15.20 Other stimulant dependence, uncomplicated; F10.10 Alcohol abuse, uncomplicated; F12.11 Cannabis abuse, in remission ==